=== PATIENT | male | born 1960 | race Caucasian/White ===

== ENCOUNTER 2021-06-08 08:28 | Observation (INO) | payer MEDICAID, OTHER ==
[~2021-06-08] VITALS: Ht 182.9 cm; Wt 83.9 kg
[2021-06-08 09:50] LABS: Basophils # (auto) 0.1 10 ^3/uL (0-0.2); Eosinophils # (auto) 0.3 10 ^3/uL (0-0.8); Eosinophils % (auto) 4.4 % (0.0-7.0); Hematocrit 41.1 % (41.0-53.0); Hemoglobin 13.8 g/dL (13.5-17.5); Lymphocytes # (auto) 1.4 10 ^3/uL (0.4-5.4); Lymphocytes % (auto) 20.2 % (10.0-50.0); Mean Corpuscular Hemoglobin 31.8 pg (28.0-32.0); Mean Corpuscular Hgb Conc. 33.6 g/dL (32.0-36.0); Mean Corpuscular Volume 94.8 fL (80.0-100.0); Monocytes # (auto) 0.7 10 ^3/uL (0-1.3); Monocytes % (auto) 10.9 % (0.0-12.0); Neutrophils # (auto) 4.3 10 ^3/uL (1.6-8.6); Neutrophils % (auto) 63.5 % (37.0-80.0); Nucleated Red Blood Cells % 0.3 %; Red Blood Cells 4.34 10^6/uL (4.5-5.90); Red Cell Distribution Width 17.2 % (11.8-14.3); White Blood Cell 6.7 10^3/uL (4.4-10.8)
[2021-06-08 09:59] LABS: Anion Gap 6 (5-15); Blood Urea Nitrogen 10 mg/dL (7-18); Calcium 7.8 mg/dL (8.5-10.1); Carbon Dioxide 24 mmol/L (21-32); Chloride 111 mmol/L (98-107); Potassium 3.8 mmol/L (3.5-5.1); Sodium 141 mmol/L (136-145)
[2021-06-08 10:07] LABS: Alanine Aminotransferase 57 U/L (16-61); Albumin 2.1 g/dL (3.4-5.0); Alkaline Phosphatase 163 U/L (45-117); Aspartate Aminotransferase 84 U/L (15-37); BUN/Creatinine Ratio 12.8; Bilirubin, Total 2.8 mg/dL (0.2-1.0); GFR African American 130 mL/min; GFR Non-African American 108 mL/min; Glucose 98 mg/dL (74-106); Magnesium 2.3 mg/dL (1.6-2.6); Total Protein 5.8 g/dL (6.4-8.2)
[2021-06-08 10:39] LABS: INR 1.37 (0.9-1.15); Partial Thromboplastin Time 31.9 sec (23.6-33.0)
[2021-06-08] MEDS ORDERED: SPIRONOLACTONE 25 MG TAB PO SCH (14:15)
[2021-06-08] MEDS ORDERED: MORPHINE SULFATE INJECTION 2 MG/ML SYRG IV PRN (14:15)
[2021-06-08] MEDS ORDERED: ONDANSETRON HCL 4 MG/2 ML VIAL IV PRN (14:15)
[2021-06-08] MEDS ORDERED: HYDROcodone-ACET 5/325MG TAB PO PRN (14:15)
[2021-06-08] MEDS ORDERED: DOCUSATE SOD 100 MG CAP PO PRN (14:15)
[2021-06-08] MEDS ORDERED: ACETAMINOPHEN 325 MG TAB PO PRN (14:15)
[2021-06-08] MEDS ORDERED: NITROGLYCERIN 0.4 MG SL TAB SL PRN (14:15)
[2021-06-08 15:28] LABS: Free T4 (Free Thyroxine) 1.15 ng/dL (0.89-1.76)
[2021-06-08 15:30] LABS: Free T3 2.35 pg/mL (2.3-4.2)
[2021-06-08] MEDS ORDERED: POTA10TA32 PO (16:10)
[2021-06-08] MEDS ORDERED: SPIR25TA PO (16:10)
[2021-06-08] MEDS ORDERED: FUR20T PO (16:10)
[2021-06-08 16:22] LABS: Hepatitis B Core IgM Negative
[2021-06-08 16:23] LABS: Hepatitis A Ab IgM Negative; Hepatitis B Surface Antigen Negative (Negative)
[2021-06-08 16:25] LABS: Hepatitis C Antibody Positive (Negative)
[2021-06-08 18:09] VITALS: BP 132/79
[2021-06-09] MEDS ORDERED: SPIRONOLACTONE 25 MG TAB PO SCH (10:00)
[2021-06-09] MEDS ORDERED: FUROSEMIDE 20 MG TAB PO SCH (10:00)
== END 2021-06-08 18:19 | disposition home or self-care (01) ==
LOC: EDBD 08:28 → ER 08:28 → OVERFLOW 14:41
PROVIDERS: ADMIT Internal Medicine; ATTEND Internal Medicine
DX: R18.8 Other ascites (principal); Z20.822 Contact with and (suspected) exposure to COVID-19; R07.89 Other chest pain; F10.10 Alcohol abuse, uncomplicated; D84.9 Immunodeficiency, unspecified; E88.09 Other disorders of plasma-protein metabolism, not elsewhere classified; K57.30 Diverticulosis of large intestine without perforation or abscess without bleeding; K80.20 Calculus of gallbladder without cholecystitis without obstruction; F17.210 Nicotine dependence, cigarettes, uncomplicated; R74.01 Elevation of levels of liver transaminase levels; Z79.899 Other long term (current) drug therapy
CPT/HCPCS: 36415; 71045; 74176; 76942; 80053; 80074; 80320; 83615; 83735; 83880; 84439; 84443; 84481; 84484; 85025; 85610; 85730; 87205; 87426; 89051; 93306; 99291; C1729; G0378; 93005

== ENCOUNTER 2021-08-08 11:56 | Emergency (ER) | payer MEDICAID ==
[~2021-08-08] VITALS: Ht 182.9 cm; Wt 108.9 kg
[~2021-08-08 11:56] MED LIST: FUR20T PO; POTA10TA32 PO; SPIR25TA PO
[2021-08-08 12:53] LABS: Basophils # (auto) 0 10 ^3/uL (0-0.2); Basophils % (auto) 0.5 % (0.0-2.0); Eosinophils # (auto) 0.4 10 ^3/uL (0-0.8); Eosinophils % (auto) 6.7 % (0.0-7.0); Hematocrit 32.8 % (41.0-53.0); Hemoglobin 11.1 g/dL (13.5-17.5); Lymphocytes % (auto) 17.9 % (10.0-50.0); Mean Corpuscular Hemoglobin 32.6 pg (28.0-32.0); Mean Corpuscular Hgb Conc. 33.8 g/dL (32.0-36.0); Mean Corpuscular Volume 96.3 fL (80.0-100.0); Monocytes # (auto) 0.7 10 ^3/uL (0-1.3); Monocytes % (auto) 12.3 % (0.0-12.0); Neutrophils # (auto) 3.5 10 ^3/uL (1.6-8.6); Neutrophils % (auto) 62.6 % (37.0-80.0); Nucleated Red Blood Cells % 0.2 %; Red Blood Cells 3.41 10^6/uL (4.5-5.90); Red Cell Distribution Width 17.4 % (11.8-14.3); White Blood Cell 5.7 10^3/uL (4.4-10.8)
[2021-08-08 13:08] LABS: INR 1.34 (0.9-1.15); Partial Thromboplastin Time 32.8 sec (23.6-33.0)
[2021-08-08 13:14] LABS: Albumin 1.9 g/dL (3.4-5.0); BUN/Creatinine Ratio 13.4; Calcium 7.3 mg/dL (8.5-10.1); Potassium 3.9 mmol/L (3.5-5.1)
[2021-08-08 13:17] LABS: Bilirubin, Total 1.9 mg/dL (0.2-1.0); Total Protein 5.3 g/dL (6.4-8.2)
[2021-08-08 14:20] VITALS: BP 137/80
== END 2021-08-08 16:03 | disposition left against medical advice (07) ==
LOC: ER 11:56
DX: K74.60 Unspecified cirrhosis of liver (principal); E83.51 Hypocalcemia; R18.8 Other ascites; F17.210 Nicotine dependence, cigarettes, uncomplicated; I10 Essential (primary) hypertension; F12.10 Cannabis abuse, uncomplicated
CPT/HCPCS: 36415; 49083; 76700; 76942; 80053; 83690; 85025; 85610; 85730; 99285; C1729

== ENCOUNTER 2021-08-20 08:43 | Emergency (ER) | payer MEDICAID ==
[~2021-08-20] VITALS: Ht 182.9 cm; Wt 102.5 kg
[2021-08-20 10:16] LABS: Basophils # (auto) 0.1 10 ^3/uL (0-0.2); Basophils % (auto) 1.1 % (0.0-2.0); Eosinophils # (auto) 0.4 10 ^3/uL (0-0.8); Eosinophils % (auto) 7.1 % (0.0-7.0); Hematocrit 34.2 % (41.0-53.0); Hemoglobin 11.6 g/dL (13.5-17.5); Lymphocytes # (auto) 1.3 10 ^3/uL (0.4-5.4); Lymphocytes % (auto) 22.3 % (10.0-50.0); Mean Corpuscular Hemoglobin 31.9 pg (28.0-32.0); Mean Corpuscular Hgb Conc. 33.8 g/dL (32.0-36.0); Mean Corpuscular Volume 94.3 fL (80.0-100.0); Monocytes # (auto) 0.8 10 ^3/uL (0-1.3); Monocytes % (auto) 14.1 % (0.0-12.0); Neutrophils # (auto) 3.3 10 ^3/uL (1.6-8.6); Neutrophils % (auto) 55.4 % (37.0-80.0); Nucleated Red Blood Cells % 0.7 %; Red Blood Cells 3.63 10^6/uL (4.5-5.90); Red Cell Distribution Width 16.4 % (11.8-14.3)
[2021-08-20 10:19] LABS: Anion Gap 5 (5-15); Blood Alcohol < 3.0 mg/dL (0-5); Blood Urea Nitrogen 9 mg/dL (7-18); Calcium 7.3 mg/dL (8.5-10.1); Carbon Dioxide 25 mmol/L (21-32); Chloride 108 mmol/L (98-107); Glucose 103 mg/dL (74-106); Potassium 3.7 mmol/L (3.5-5.1); Sodium 138 mmol/L (136-145)
[2021-08-20 10:23] LABS: Alanine Aminotransferase 48 U/L (16-61); Alkaline Phosphatase 116 U/L (45-117); Aspartate Aminotransferase 73 U/L (15-37); BUN/Creatinine Ratio 11.7; Bilirubin, Total 2.1 mg/dL (0.2-1.0); GFR African American 132 mL/min; GFR Non-African American 109 mL/min; Total Protein 5.8 g/dL (6.4-8.2)
[2021-08-20 11:15] VITALS: BP 188/85
[2021-08-20 12:27] LABS: INR 1.23 (0.9-1.15)
[2021-08-20] MEDS ORDERED: ALBUMIN 25% 100 ML IV ONE ×2 (14:56→14:57)
== END 2021-08-20 17:37 | disposition left against medical advice (07) ==
LOC: ER 08:43
DX: K70.31 Alcoholic cirrhosis of liver with ascites (principal); R14.0 Abdominal distension (gaseous); F17.210 Nicotine dependence, cigarettes, uncomplicated; F12.10 Cannabis abuse, uncomplicated; I10 Essential (primary) hypertension
CPT/HCPCS: 36415; 74176; 76942; 80053; 80320; 82140; 84443; 85025; 85610; 99284; J7030; P9047

== ENCOUNTER 2021-09-07 13:38 | Emergency (ER) | payer MEDICAID ==
[~2021-09-07] VITALS: Ht 185.4 cm; Wt 95.7 kg
[2021-09-07 13:41] VITALS: BP 145/73
== END 2021-09-07 14:04 | disposition left against medical advice (07) ==
LOC: ER 13:38
DX: K74.69 Other cirrhosis of liver (principal); R18.8 Other ascites; I10 Essential (primary) hypertension; F17.210 Nicotine dependence, cigarettes, uncomplicated; Z79.899 Other long term (current) drug therapy

== ENCOUNTER 2021-09-08 08:12 | Emergency (ER) | payer MEDICAID ==
[~2021-09-08] VITALS: Ht 182.9 cm; Wt 99.8 kg
[2021-09-08 08:15] VITALS: BP 124/82
[2021-09-08 10:04] LABS: Basophils # (auto) 0.1 10 ^3/uL (0-0.2); Basophils % (auto) 0.9 % (0.0-2.0); Eosinophils # (auto) 0.5 10 ^3/uL (0-0.8); Eosinophils % (auto) 9.6 % (0.0-7.0); Hematocrit 33.5 % (41.0-53.0); Hemoglobin 11.3 g/dL (13.5-17.5); Lymphocytes # (auto) 1.3 10 ^3/uL (0.4-5.4); Lymphocytes % (auto) 22.4 % (10.0-50.0); Mean Corpuscular Hemoglobin 31.7 pg (28.0-32.0); Mean Corpuscular Hgb Conc. 33.9 g/dL (32.0-36.0); Mean Corpuscular Volume 93.6 fL (80.0-100.0); Monocytes # (auto) 0.6 10 ^3/uL (0-1.3); Neutrophils # (auto) 3.3 10 ^3/uL (1.6-8.6); Neutrophils % (auto) 57.1 % (37.0-80.0); Nucleated Red Blood Cells % 0.2 %; Red Blood Cells 3.58 10^6/uL (4.5-5.90); Red Cell Distribution Width 16.2 % (11.8-14.3); White Blood Cell 5.7 10^3/uL (4.4-10.8)
[2021-09-08 10:09] LABS: Calcium 7.8 mg/dL (8.5-10.1); Potassium 3.8 mmol/L (3.5-5.1)
[2021-09-08 10:14] LABS: BUN/Creatinine Ratio 11.9; Bilirubin, Total 1.8 mg/dL (0.2-1.0); Total Protein 5.8 g/dL (6.4-8.2)
[2021-09-08 11:15] LABS: INR 1.31 (0.9-1.15)
== END 2021-09-08 18:22 | disposition left against medical advice (07) ==
LOC: ER 08:12
DX: K74.60 Unspecified cirrhosis of liver (principal); R18.8 Other ascites; E43 Unspecified severe protein-calorie malnutrition; I10 Essential (primary) hypertension; F17.210 Nicotine dependence, cigarettes, uncomplicated; Z68.29 Body mass index [BMI] 29.0-29.9, adult; Z79.899 Other long term (current) drug therapy
CPT/HCPCS: 36415; 76700; 80053; 85025; 85610; 85730; 93005

== ENCOUNTER → 2021-09-10 | Outpatient (CLI) | payer MEDICAID ==
[2021-09-10] MEDS: ALBUMIN 25% 100 ML IV SCH ×2 (11:24→11:35)
== END | disposition home or self-care (01) ==
LOC: XYW 10:09
PROVIDERS: ATTEND Internal Medicine Gastroenterology
DX: R18.8 Other ascites (principal)
CPT/HCPCS: 49083; 76700; 83986; 87205; 88104; 88305; 88342; 89051; C1729; 76942

== ENCOUNTER → 2021-09-17 | Outpatient (CLI) | payer MEDICAID | END | disposition home or self-care (01) | LOC: US 10:02 | PROVIDERS: ATTEND Internal Medicine Gastroenterology | DX: R18.8 Other ascites (principal) | CPT/HCPCS: 49083; 76705; C1729; 76942 ==

== ENCOUNTER → 2021-09-24 | Outpatient (CLI) | payer MEDICAID | END | disposition home or self-care (01) | LOC: US 09:32 | PROVIDERS: ATTEND Internal Medicine Gastroenterology | DX: R18.8 Other ascites (principal) | CPT/HCPCS: 49083; 76705; 76942 ==

== ENCOUNTER → 2021-10-01 | Outpatient (CLI) | payer MEDICAID | END | disposition home or self-care (01) | LOC: US 09:30 | PROVIDERS: ATTEND Internal Medicine Gastroenterology | DX: R18.8 Other ascites (principal) | CPT/HCPCS: 49083; 76705; 76942; C1729 ==

== ENCOUNTER → 2021-10-09 | Outpatient (CLI) | payer MEDICAID | END | disposition home or self-care (01) | LOC: XYW 14:41 | PROVIDERS: ATTEND Internal Medicine Gastroenterology | DX: R18.8 Other ascites (principal) | CPT/HCPCS: 49083; 76705; 76942; C1729 ==

== ENCOUNTER → 2021-10-15 | Outpatient (CLI) | payer MEDICAID | END | disposition home or self-care (01) | LOC: XYW 14:47 | PROVIDERS: ATTEND Internal Medicine Gastroenterology | DX: R18.8 Other ascites (principal) | CPT/HCPCS: 49083; 76705; C1729; 76942 ==

== ENCOUNTER → 2021-10-22 | Outpatient (CLI) | payer MEDICAID ==
[~2021-10-22] MED LIST changes: +LIDOCAINE 2%HCL (LOCAL ANESTH.) INJ 10ml MDV ONE
== END | disposition home or self-care (01) ==
LOC: US 15:00
PROVIDERS: ATTEND Internal Medicine Gastroenterology
DX: R18.8 Other ascites (principal)
CPT/HCPCS: 49083; 76705; C1729; J2001; 76942

== ENCOUNTER → 2021-11-03 | Outpatient (CLI) | payer MEDICAID ==
[~2021-11-03] MED LIST changes: -LIDOCAINE 2%HCL (LOCAL ANESTH.) INJ 10ml MDV ONE
== END | disposition home or self-care (01) ==
LOC: US 15:41
PROVIDERS: ATTEND Internal Medicine Gastroenterology
DX: R18.8 Other ascites (principal)
CPT/HCPCS: 49083; 76705; C1729; 76942

== ENCOUNTER → 2021-11-11 | Outpatient (CLI) | payer MEDICAID | END | disposition home or self-care (01) | LOC: XYW 14:54 | PROVIDERS: ATTEND Internal Medicine Gastroenterology | DX: R18.8 Other ascites (principal) | CPT/HCPCS: 49083; 76700; C1729; 76942 ==

== ENCOUNTER → 2021-11-19 | Outpatient (CLI) | payer MEDICAID | END | disposition home or self-care (01) | LOC: US 14:51 | PROVIDERS: ATTEND Internal Medicine Gastroenterology | DX: R18.8 Other ascites (principal) | CPT/HCPCS: 76700; 76942 ==

== ENCOUNTER → 2021-12-03 | Outpatient (CLI) | payer MEDICAID ==
[~2021-12-03] MED LIST changes: +LIDOCAINE 2%HCL (LOCAL ANESTH.) INJ 10ml MDV ONE
== END | disposition home or self-care (01) ==
LOC: XYW 12:33
PROVIDERS: ATTEND Internal Medicine Gastroenterology
DX: R18.8 Other ascites (principal)
CPT/HCPCS: 49083; 76700; C1729; 76942

== ENCOUNTER → 2021-12-11 | Outpatient (CLI) | payer MEDICAID ==
[~2021-12-11] MED LIST changes: -LIDOCAINE 2%HCL (LOCAL ANESTH.) INJ 10ml MDV ONE
== END | disposition home or self-care (01) ==
LOC: US 09:17
PROVIDERS: ATTEND Internal Medicine Gastroenterology
DX: R18.8 Other ascites (principal); K76.9 Liver disease, unspecified
CPT/HCPCS: 49083; 76700; C1729; J2001; 76942

== ENCOUNTER → 2021-12-21 | Outpatient (CLI) | payer MEDICAID | END | disposition home or self-care (01) | LOC: US 09:55 | PROVIDERS: ATTEND Internal Medicine Gastroenterology | DX: K76.9 Liver disease, unspecified (principal); Z86.19 Personal history of other infectious and parasitic diseases | CPT/HCPCS: 76700; 76942; C1729 ==

== ENCOUNTER → 2022-01-05 | Outpatient (CLI) | payer MEDICAID | END | disposition home or self-care (01) | LOC: XYW 11:59 | PROVIDERS: ATTEND Internal Medicine Gastroenterology | DX: K75.89 Other specified inflammatory liver diseases (principal); K74.60 Unspecified cirrhosis of liver; R18.8 Other ascites | CPT/HCPCS: 76700; 76942; 83986; 87205; 89051; C1729 ==

== ENCOUNTER → 2022-01-19 | Outpatient (CLI) | payer MEDICAID | END | disposition home or self-care (01) | LOC: XYW 11:53 | PROVIDERS: ATTEND Internal Medicine Gastroenterology | DX: R18.8 Other ascites (principal); Z20.822 Contact with and (suspected) exposure to COVID-19 | CPT/HCPCS: 49083; 76705; 83986; 87205; 88104; 88305; 88342; 89051; C1729; 76942 ==

== ENCOUNTER → 2022-01-26 | Outpatient (CLI) | payer MEDICAID | END | disposition home or self-care (01) | LOC: US 11:59 | PROVIDERS: ATTEND Internal Medicine Gastroenterology | DX: R18.8 Other ascites (principal); Z20.822 Contact with and (suspected) exposure to COVID-19 | CPT/HCPCS: 49083; 76700; 76942; 83986; 87205; 89051; C1729 ==

== ENCOUNTER → 2022-02-09 | Outpatient (CLI) | payer MEDICAID | END | disposition home or self-care (01) | LOC: XYW 11:57 | PROVIDERS: ATTEND Internal Medicine Gastroenterology | DX: R18.8 Other ascites (principal) | CPT/HCPCS: 87205; 89051; C1729; 76700; 76942 ==

== ENCOUNTER → 2022-02-23 | Outpatient (CLI) | payer MEDICAID ==
[~2022-02-23] MED LIST changes: +LIDOCAINE 2%HCL (LOCAL ANESTH.) INJ 10ml MDV ONE
[2022-02-23 13:14] LABS: Albumin 1.8 g/dL (3.4-5.0); Calcium 7.4 mg/dL (8.5-10.1); Potassium 4.3 mmol/L (3.5-5.1)
[2022-02-23 13:16] LABS: INR 1.16 (0.9-1.15); Partial Thromboplastin Time 28.4 sec (23.6-33.0)
[2022-02-23 13:17] LABS: Bilirubin, Total 1.4 mg/dL (0.2-1.0); Total Protein 5.7 g/dL (6.4-8.2)
== END | disposition home or self-care (01) ==
LOC: XYW 12:04
PROVIDERS: ATTEND Internal Medicine Gastroenterology
DX: R18.8 Other ascites (principal)
CPT/HCPCS: 36415; 49083; 76700; 80053; 85610; 85730; 87205; 89051; C1729; J2001; 76942

== ENCOUNTER → 2022-03-02 | Outpatient (CLI) | payer MEDICAID | END | disposition home or self-care (01) | LOC: US 11:53 | PROVIDERS: ATTEND Internal Medicine Gastroenterology | DX: R18.8 Other ascites (principal); Z20.822 Contact with and (suspected) exposure to COVID-19 | CPT/HCPCS: 49083; 76700; 83986; 87205; 89051; C1729; J2001; 76942 ==

== ENCOUNTER → 2022-03-09 | Outpatient (CLI) | payer MEDICAID | END | disposition home or self-care (01) | LOC: XYW 11:55 | PROVIDERS: ATTEND Internal Medicine Gastroenterology | DX: R18.8 Other ascites (principal) | CPT/HCPCS: 49083; 76705; 83986; 87205; 89051; C1729; J2001; 76942 ==

== ENCOUNTER → 2022-03-16 | Outpatient (CLI) | payer MEDICAID | END | disposition home or self-care (01) | LOC: XYW 11:54 | PROVIDERS: ATTEND Internal Medicine Gastroenterology | DX: R18.8 Other ascites (principal) | CPT/HCPCS: 49083; 76700; 76942; 83986; 87205; 89051; C1729; J2001 ==

== ENCOUNTER → 2022-03-23 | Outpatient (CLI) | payer MEDICAID ==
[~2022-03-23] MED LIST changes: -LIDOCAINE 2%HCL (LOCAL ANESTH.) INJ 10ml MDV ONE
== END | disposition home or self-care (01) ==
LOC: XYW 11:48
PROVIDERS: ATTEND Internal Medicine Gastroenterology
DX: R18.8 Other ascites (principal)
CPT/HCPCS: 76700; 76942; 87205; 89051; C1729

== ENCOUNTER → 2022-03-30 | Outpatient (CLI) | payer MEDICAID | END | disposition home or self-care (01) | LOC: US 12:00 | PROVIDERS: ATTEND Internal Medicine Gastroenterology | DX: R18.8 Other ascites (principal) | CPT/HCPCS: 49083; 76700; 76942; 83986; 87205; 88104; 88305; 88342; 89051; C1729 ==

== ENCOUNTER → 2022-04-06 | Outpatient (CLI) | payer MEDICAID | END | disposition home or self-care (01) | LOC: XYW 11:49 | PROVIDERS: ATTEND Internal Medicine Gastroenterology | DX: R18.8 Other ascites (principal) | CPT/HCPCS: 49083; 76700; 83986; 87205; 89051; C1729; 76942 ==

== ENCOUNTER → 2022-04-13 | Outpatient (CLI) | payer MEDICAID | END | disposition home or self-care (01) | LOC: XYW 12:24 | PROVIDERS: ATTEND Internal Medicine Gastroenterology | DX: R18.8 Other ascites (principal) | CPT/HCPCS: 49083; 76942; 83986; 87205; 89051; C1729 ==

== ENCOUNTER → 2022-04-20 | Outpatient (CLI) | payer MEDICAID | END | disposition home or self-care (01) | LOC: XYW 11:56 | PROVIDERS: ATTEND Internal Medicine Gastroenterology | DX: R18.8 Other ascites (principal) | CPT/HCPCS: 49083; 76700; 83986; 87205; 89051; C1729; 76942 ==

== ENCOUNTER → 2022-04-27 | Outpatient (CLI) | payer MEDICAID | END | disposition home or self-care (01) | LOC: XYW 11:46 | PROVIDERS: ATTEND Internal Medicine Gastroenterology | DX: R18.8 Other ascites (principal); Z20.822 Contact with and (suspected) exposure to COVID-19 | CPT/HCPCS: 49083; 76700; 83986; 87205; 89051; C1729; 76942 ==

== ENCOUNTER → 2022-05-04 | Outpatient (CLI) | payer MEDICAID ==
[~2022-05-04] MED LIST changes: +LIDOCAINE VISCOUS 2% 15ML UD ONE; +MIDAZOLAM HCL 5 MG/ML-1ML VIAL ONE; +diphenhdrAMINE HCL 50 MG/1 ML VL ONE; +fentaNYL CITRATE 100 MCG/2 ML VL ONE
== END | disposition home or self-care (01) ==
LOC: XYW 11:55
PROVIDERS: ATTEND Internal Medicine Gastroenterology
DX: R18.8 Other ascites (principal); F17.200 Nicotine dependence, unspecified, uncomplicated
CPT/HCPCS: 49083; 76705; 76942; 83986; 87077; 87186; 87205; 89051

== ENCOUNTER 2022-05-12 13:24 | Day surgery (SDC) | payer MEDICAID ==
[2022-05-10 12:51] LABS: Basophils # (auto) 0.1 10 ^3/uL (0-0.2); Basophils % (auto) 0.9 % (0.0-2.0); Eosinophils # (auto) 0.9 10 ^3/uL (0-0.8); Eosinophils % (auto) 13.4 % (0.0-7.0); Hematocrit 37.5 % (41.0-53.0); Hemoglobin 12.1 g/dL (13.5-17.5); Lymphocytes # (auto) 1.4 10 ^3/uL (0.4-5.4); Lymphocytes % (auto) 21.2 % (10.0-50.0); Mean Corpuscular Hemoglobin 27.6 pg (28.0-32.0); Mean Corpuscular Hgb Conc. 32.4 g/dL (32.0-36.0); Mean Corpuscular Volume 85.3 fL (80.0-100.0); Monocytes # (auto) 0.7 10 ^3/uL (0-1.3); Neutrophils # (auto) 3.6 10 ^3/uL (1.6-8.6); Neutrophils % (auto) 54.5 % (37.0-80.0); Nucleated Red Blood Cells % 0.2 %; Red Blood Cells 4.39 10^6/uL (4.5-5.90); White Blood Cell 6.6 10^3/uL (4.4-10.8)
[2022-05-10 12:53] LABS: Red Cell Distribution Width 23.1 % (11.8-14.3)
[2022-05-10 13:05] LABS: INR 1.15 (0.9-1.15); Partial Thromboplastin Time 28.4 sec (24.6-33.4)
[2022-05-10 13:14] LABS: Albumin 2.2 g/dL (3.4-5.0); Calcium 7.8 mg/dL (8.5-10.1); Potassium 4.3 mmol/L (3.5-5.1)
[2022-05-10 13:45] LABS: BUN/Creatinine Ratio 13.4; Bilirubin, Total 1.2 mg/dL (0.2-1.0); Total Protein 5.5 g/dL (6.4-8.2)
[~2022-05-12] VITALS: Ht 182.9 cm; Wt 81.6 kg
[~2022-05-12 13:24] MED LIST changes: -LIDOCAINE VISCOUS 2% 15ML UD ONE; -MIDAZOLAM HCL 5 MG/ML-1ML VIAL ONE; -diphenhdrAMINE HCL 50 MG/1 ML VL ONE; -fentaNYL CITRATE 100 MCG/2 ML VL ONE
[2022-05-12 16:05] VITALS: BP 114/75
[2022-05-18] MEDS ORDERED: FER325T PO (15:39)
[2022-05-18] MEDS ORDERED: LEV50T PO (15:39)
== END 2022-05-12 16:21 | disposition home or self-care (01) ==
LOC: GI 13:24
PROVIDERS: ATTEND Internal Medicine Gastroenterology
DX: R53.82 Chronic fatigue, unspecified (principal); K74.60 Unspecified cirrhosis of liver; D61.818 Other pancytopenia; K31.89 Other diseases of stomach and duodenum; K44.9 Diaphragmatic hernia without obstruction or gangrene; K29.50 Unspecified chronic gastritis without bleeding; K29.90 Gastroduodenitis, unspecified, without bleeding; Z98.890 Other specified postprocedural states; Z79.899 Other long term (current) drug therapy; Z20.822 Contact with and (suspected) exposure to COVID-19; Z87.891 Personal history of nicotine dependence
CPT/HCPCS: 36415; 43239; 80053; 85025; 85610; 85730; 88305; 88342; J1200; J2250; J3010; J7030; U0003; 99152

== ENCOUNTER → 2022-05-13 | Outpatient (CLI) | payer MEDICAID ==
[~2022-05-13] MED LIST changes: +FER325T PO; +LEV50T PO
== END | disposition home or self-care (01) ==
LOC: US 12:05
PROVIDERS: ATTEND Internal Medicine Gastroenterology
DX: R18.8 Other ascites (principal)
CPT/HCPCS: 49083; 76700; 83986; 87205; 89051; C1729; 76942

== ENCOUNTER → 2022-05-19 | Day surgery (SDC) | payer MEDICAID ==
[2022-05-18 13:36] LABS: Hematocrit 36.7 % (41.0-53.0); Hemoglobin 11.8 g/dL (13.5-17.5); Mean Corpuscular Hemoglobin 27.5 pg (28.0-32.0); Mean Corpuscular Hgb Conc. 32.2 g/dL (32.0-36.0); Mean Corpuscular Volume 85.4 fL (80.0-100.0); White Blood Cell 6.4 10^3/uL (4.4-10.8)
[2022-05-18 13:46] LABS: Red Cell Distribution Width 22.8 % (11.8-14.3)
[2022-05-18 13:47] LABS: Band Neutrophils % (manual) 0; Basophils % (manual) 0 (0.0-2.0); Blast Cells 0; Metamyelocytes % 0; Myelocytes % 0; Promyelocytes % 0; Reactive Lymphocytes 0
[2022-05-18 13:57] LABS: INR 1.16 (0.9-1.15); Partial Thromboplastin Time 29.4 sec (24.6-33.4)
[2022-05-18 14:00] LABS: Albumin 1.8 g/dL (3.4-5.0); Calcium 7.3 mg/dL (8.5-10.1); Potassium 3.8 mmol/L (3.5-5.1)
[2022-05-18 14:03] LABS: BUN/Creatinine Ratio 9.5; Total Protein 5.2 g/dL (6.4-8.2)
[2022-05-18 14:06] LABS: Eosinophils % (manual) 21 (0-7); Lymphocytes % (manual) 18 (10.0-50.0); Monocytes % (manual) 7 (0-12)
[~2022-05-19] VITALS: Ht 182.9 cm; Wt 81.6 kg
[~2022-05-19] MED LIST changes: +HYDROmorphone HCL 2 MG/ML VL/or syr IV ONE; +HYDROmorphone HCL 2 MG/ML VL/or syr ONE; +MIDAZOLAM HCL 5 MG/ML-1ML VIAL IV ONE; +ONDANSETRON HCL 4 MG/2 ML VIAL IV ONE; +ONDANSETRON HCL 4 MG/2 ML VIAL ONE; +diphenhdrAMINE HCL 50 MG/1 ML VL IV ONE; +fentaNYL CITRATE 100 MCG/2 ML VL IV ONE
[2022-05-19 17:00] VITALS: BP 103/82
== END | disposition home or self-care (01) ==
LOC: GI 13:36
PROVIDERS: ATTEND Internal Medicine Gastroenterology
DX: R10.30 Lower abdominal pain, unspecified (principal); K57.30 Diverticulosis of large intestine without perforation or abscess without bleeding; K64.0 First degree hemorrhoids; D12.5 Benign neoplasm of sigmoid colon; D64.9 Anemia, unspecified; I10 Essential (primary) hypertension; E03.9 Hypothyroidism, unspecified; Z79.899 Other long term (current) drug therapy; Z20.822 Contact with and (suspected) exposure to COVID-19
CPT/HCPCS: 36415; 45380; 74018; 80053; 85007; 85027; 85610; 85730; 88305; J1170; J1200; J2250; J2405; J3010; J7030; U0003; 99152

== ENCOUNTER → 2022-05-27 | Outpatient (CLI) | payer MEDICAID ==
[~2022-05-27] MED LIST changes: -HYDROmorphone HCL 2 MG/ML VL/or syr IV ONE; -HYDROmorphone HCL 2 MG/ML VL/or syr ONE; -MIDAZOLAM HCL 5 MG/ML-1ML VIAL IV ONE; -ONDANSETRON HCL 4 MG/2 ML VIAL IV ONE; -ONDANSETRON HCL 4 MG/2 ML VIAL ONE; -diphenhdrAMINE HCL 50 MG/1 ML VL IV ONE; -fentaNYL CITRATE 100 MCG/2 ML VL IV ONE
== END | disposition home or self-care (01) ==
LOC: US 13:15
PROVIDERS: ATTEND Internal Medicine Gastroenterology
DX: R18.8 Other ascites (principal)
CPT/HCPCS: 49083; 76700; 76942; 83986; 87205; 89051; C1729

== ENCOUNTER → 2022-06-03 | Outpatient (CLI) | payer MEDICAID | END | disposition home or self-care (01) | LOC: US 12:53 | PROVIDERS: ATTEND Internal Medicine Gastroenterology | DX: R18.8 Other ascites (principal) | CPT/HCPCS: 49083; 76700; 83986; 87205; 89051; C1729; 76942 ==

== ENCOUNTER → 2022-06-10 | Outpatient (CLI) | payer MEDICAID ==
[2022-06-10 13:51] LABS: Basophils # (auto) 0 10 ^3/uL (0-0.2); Basophils % (auto) 0.4 % (0.0-2.0); Eosinophils # (auto) 0.6 10 ^3/uL (0-0.8); Eosinophils % (auto) 9.8 % (0.0-7.0); Hematocrit 36.2 % (41.0-53.0); Lymphocytes # (auto) 0.8 10 ^3/uL (0.4-5.4); Lymphocytes % (auto) 11.9 % (10.0-50.0); Mean Corpuscular Hemoglobin 29.3 pg (28.0-32.0); Mean Corpuscular Hgb Conc. 33.1 g/dL (32.0-36.0); Mean Corpuscular Volume 88.6 fL (80.0-100.0); Monocytes # (auto) 0.6 10 ^3/uL (0-1.3); Monocytes % (auto) 8.9 % (0.0-12.0); Neutrophils # (auto) 4.4 10 ^3/uL (1.6-8.6); Red Blood Cells 4.09 10^6/uL (4.5-5.90); White Blood Cell 6.3 10^3/uL (4.4-10.8)
[2022-06-10 14:07] LABS: INR 1.19 (0.9-1.15); Partial Thromboplastin Time 27.5 sec (24.6-33.4)
== END | disposition home or self-care (01) ==
LOC: US 13:53
PROVIDERS: ATTEND Internal Medicine Gastroenterology
DX: R18.8 Other ascites (principal)
CPT/HCPCS: 36415; 49083; 76700; 85025; 85610; 85730; 87205; 89051; C1729; 76942

== ENCOUNTER → 2022-06-16 | Outpatient (CLI) | payer MEDICAID ==
[2022-06-16 12:40] LABS: Basophils # (auto) 0 10 ^3/uL (0-0.2); Basophils % (auto) 0.7 % (0.0-2.0); Eosinophils # (auto) 0.8 10 ^3/uL (0-0.8); Eosinophils % (auto) 14.1 % (0.0-7.0); Hematocrit 37.8 % (41.0-53.0); Hemoglobin 12.9 g/dL (13.5-17.5); Lymphocytes # (auto) 1.1 10 ^3/uL (0.4-5.4); Lymphocytes % (auto) 19.1 % (10.0-50.0); Mean Corpuscular Hemoglobin 30.1 pg (28.0-32.0); Mean Corpuscular Volume 88.4 fL (80.0-100.0); Monocytes # (auto) 0.6 10 ^3/uL (0-1.3); Monocytes % (auto) 10.7 % (0.0-12.0); Neutrophils # (auto) 3.3 10 ^3/uL (1.6-8.6); Neutrophils % (auto) 55.4 % (37.0-80.0); Nucleated Red Blood Cells % 0.1 %; Red Blood Cells 4.28 10^6/uL (4.5-5.90); Red Cell Distribution Width 19.2 % (11.8-14.3)
[2022-06-16 13:07] LABS: Albumin 1.8 g/dL (3.4-5.0); Calcium 7.2 mg/dL (8.5-10.1); INR 1.17 (0.9-1.15); Partial Thromboplastin Time 28.7 sec (24.6-33.4); Potassium 3.9 mmol/L (3.5-5.1)
[2022-06-16 13:08] LABS: BUN/Creatinine Ratio 10.1
[2022-06-16 13:11] LABS: Bilirubin, Total 1.4 mg/dL (0.2-1.0); Total Protein 5.4 g/dL (6.4-8.2)
== END | disposition home or self-care (01) ==
LOC: LAB 12:14
PROVIDERS: ATTEND Internal Medicine Gastroenterology
DX: R18.8 Other ascites (principal)
CPT/HCPCS: 36415; 80053; 85025; 85610; 85730

== ENCOUNTER → 2022-06-17 | Outpatient (CLI) | payer MEDICAID | END | disposition home or self-care (01) | LOC: US 12:23 | PROVIDERS: ATTEND Internal Medicine Gastroenterology | DX: R18.8 Other ascites (principal) | CPT/HCPCS: 49083; 76705; 87205; 89051; C1729; 76942 ==

== ENCOUNTER → 2022-06-29 | Outpatient (CLI) | payer MEDICAID ==
[2022-06-29 12:39] LABS: Basophils # (auto) 0.1 10 ^3/uL (0-0.2); Basophils % (auto) 1.2 % (0.0-2.0); Eosinophils % (auto) 12.8 % (0.0-7.0); Hematocrit 35.8 % (41.0-53.0); Hemoglobin 12.2 g/dL (13.5-17.5); Lymphocytes # (auto) 1.4 10 ^3/uL (0.4-5.4); Mean Corpuscular Hemoglobin 29.9 pg (28.0-32.0); Mean Corpuscular Hgb Conc. 34.1 g/dL (32.0-36.0); Mean Corpuscular Volume 87.7 fL (80.0-100.0); Monocytes % (auto) 11.9 % (0.0-12.0); Neutrophils # (auto) 4.6 10 ^3/uL (1.6-8.6); Neutrophils % (auto) 57.1 % (37.0-80.0); Red Blood Cells 4.08 10^6/uL (4.5-5.90); Red Cell Distribution Width 17.1 % (11.8-14.3); White Blood Cell 8.1 10^3/uL (4.4-10.8)
[2022-06-29 12:54] LABS: INR 1.12 (0.9-1.15); Partial Thromboplastin Time 32.3 sec (24.6-33.4)
[2022-06-29 13:26] LABS: BUN/Creatinine Ratio 15.2; Calcium 7.6 mg/dL (8.5-10.1); Potassium 4.1 mmol/L (3.5-5.1)
== END | disposition home or self-care (01) ==
LOC: LAB 12:14
PROVIDERS: ATTEND Internal Medicine Gastroenterology
DX: R18.8 Other ascites (principal)
CPT/HCPCS: 36415; 80048; 85025; 85610; 85730

== ENCOUNTER → 2022-06-30 | Outpatient (CLI) | payer MEDICAID | END | disposition home or self-care (01) | LOC: XYW 12:25 | PROVIDERS: ATTEND Internal Medicine Gastroenterology | DX: R18.8 Other ascites (principal) | CPT/HCPCS: 49083; 76705; 83986; 87205; 89051; C1729; 76942 ==

== ENCOUNTER → 2022-07-08 | Outpatient (CLI) | payer MEDICAID | END | disposition home or self-care (01) | LOC: XYW 10:03 | PROVIDERS: ATTEND Internal Medicine Gastroenterology | DX: R18.8 Other ascites (principal) | CPT/HCPCS: 49083; 76700; 83986; 87205; 89051; C1729; 76942 ==

== ENCOUNTER → 2022-07-08 | Outpatient (CLI) | payer MEDICAID ==
[2022-07-08 10:26] LABS: Basophils # (auto) 0 10 ^3/uL (0-0.2); Basophils % (auto) 0.8 % (0.0-2.0); Eosinophils # (auto) 0.7 10 ^3/uL (0-0.8); Eosinophils % (auto) 11.7 % (0.0-7.0); Hematocrit 38.3 % (41.0-53.0); Hemoglobin 12.8 g/dL (13.5-17.5); Lymphocytes # (auto) 1.2 10 ^3/uL (0.4-5.4); Mean Corpuscular Hemoglobin 30.4 pg (28.0-32.0); Mean Corpuscular Hgb Conc. 33.5 g/dL (32.0-36.0); Mean Corpuscular Volume 90.8 fL (80.0-100.0); Monocytes # (auto) 0.6 10 ^3/uL (0-1.3); Monocytes % (auto) 11.1 % (0.0-12.0); Neutrophils # (auto) 3.2 10 ^3/uL (1.6-8.6); Neutrophils % (auto) 55.4 % (37.0-80.0); Nucleated Red Blood Cells % 0.1 %; Red Blood Cells 4.21 10^6/uL (4.5-5.90); Red Cell Distribution Width 18.3 % (11.8-14.3); White Blood Cell 5.7 10^3/uL (4.4-10.8)
[2022-07-08 10:44] LABS: INR 1.19 (0.9-1.15); Partial Thromboplastin Time 28.6 sec (24.6-33.4)
== END | disposition home or self-care (01) ==
LOC: LAB 09:42
PROVIDERS: ATTEND Internal Medicine Gastroenterology
DX: R18.8 Other ascites (principal)
CPT/HCPCS: 85610; 85730

== ENCOUNTER → 2022-07-13 | Outpatient (CLI) | payer MEDICAID ==
[2022-07-13 12:12] LABS: Basophils # (auto) 0 10 ^3/uL (0-0.2); Basophils % (auto) 0.6 % (0.0-2.0); Eosinophils # (auto) 0.5 10 ^3/uL (0-0.8); Eosinophils % (auto) 11.3 % (0.0-7.0); Hematocrit 35.8 % (41.0-53.0); Hemoglobin 11.9 g/dL (13.5-17.5); Lymphocytes # (auto) 0.9 10 ^3/uL (0.4-5.4); Lymphocytes % (auto) 19.7 % (10.0-50.0); Mean Corpuscular Hemoglobin 30.7 pg (28.0-32.0); Mean Corpuscular Hgb Conc. 33.4 g/dL (32.0-36.0); Monocytes # (auto) 0.5 10 ^3/uL (0-1.3); Monocytes % (auto) 12.1 % (0.0-12.0); Neutrophils # (auto) 2.6 10 ^3/uL (1.6-8.6); Neutrophils % (auto) 56.3 % (37.0-80.0); Red Blood Cells 3.89 10^6/uL (4.5-5.90); Red Cell Distribution Width 17.4 % (11.8-14.3); White Blood Cell 4.5 10^3/uL (4.4-10.8)
[2022-07-13 14:23] LABS: INR 1.22 (0.9-1.15)
== END | disposition home or self-care (01) ==
LOC: LAB 11:44
PROVIDERS: ATTEND Internal Medicine Gastroenterology
DX: R18.8 Other ascites (principal)
CPT/HCPCS: 36415; 85025; 85049; 85610; 85730

== ENCOUNTER → 2022-07-14 | Outpatient (CLI) | payer MEDICAID ==
[~2022-07-14] MED LIST changes: +LIDOCAINE 1%HCL (LOCAL ANESTH) 10 ML MDV ONE
== END | disposition home or self-care (01) ==
LOC: XYW 12:37
PROVIDERS: ATTEND Internal Medicine Gastroenterology
DX: R18.8 Other ascites (principal)
CPT/HCPCS: 49083; 76700; 83986; 87205; 89051; C1729; J2001; 76942

== ENCOUNTER → 2022-07-21 | Outpatient (CLI) | payer MEDICAID ==
[~2022-07-21] MED LIST changes: -LIDOCAINE 1%HCL (LOCAL ANESTH) 10 ML MDV ONE
[2022-07-21 15:15] LABS: Basophils # (auto) 0 10 ^3/uL (0-0.2); Basophils % (auto) 0.6 % (0.0-2.0); Eosinophils # (auto) 0.9 10 ^3/uL (0-0.8); Eosinophils % (auto) 14.4 % (0.0-7.0); Hematocrit 37.2 % (41.0-53.0); Hemoglobin 12.5 g/dL (13.5-17.5); Lymphocytes # (auto) 1.4 10 ^3/uL (0.4-5.4); Lymphocytes % (auto) 22.3 % (10.0-50.0); Mean Corpuscular Hemoglobin 30.7 pg (28.0-32.0); Mean Corpuscular Hgb Conc. 33.6 g/dL (32.0-36.0); Mean Corpuscular Volume 91.2 fL (80.0-100.0); Monocytes # (auto) 0.9 10 ^3/uL (0-1.3); Monocytes % (auto) 13.4 % (0.0-12.0); Neutrophils # (auto) 3.2 10 ^3/uL (1.6-8.6); Neutrophils % (auto) 49.3 % (37.0-80.0); Nucleated Red Blood Cells % 0.1 %; Red Blood Cells 4.08 10^6/uL (4.5-5.90); White Blood Cell 6.4 10^3/uL (4.4-10.8)
[2022-07-21 15:29] LABS: INR 1.18 (0.9-1.15); Partial Thromboplastin Time 27.9 sec (24.6-33.4)
== END | disposition home or self-care (01) ==
LOC: LAB 14:58
PROVIDERS: ATTEND Internal Medicine Gastroenterology
DX: R18.8 Other ascites (principal)
CPT/HCPCS: 36415; 85025; 85049; 85610; 85730

== ENCOUNTER → 2022-07-22 | Outpatient (CLI) | payer MEDICAID | END | disposition home or self-care (01) | LOC: XYW 12:45 | PROVIDERS: ATTEND Internal Medicine Gastroenterology | DX: R18.8 Other ascites (principal) | CPT/HCPCS: 49083; 76700; 83986; 87205; 89051; C1729; 76942 ==

== ENCOUNTER → 2022-07-27 | Outpatient (CLI) | payer MEDICAID ==
[2022-07-27 15:30] LABS: Basophils # (auto) 0 10 ^3/uL (0-0.2); Basophils % (auto) 0.9 % (0.0-2.0); Eosinophils # (auto) 0.3 10 ^3/uL (0-0.8); Hemoglobin 12.5 g/dL (13.5-17.5); Lymphocytes # (auto) 1.2 10 ^3/uL (0.4-5.4); Monocytes # (auto) 0.4 10 ^3/uL (0-1.3); Neutrophils # (auto) 0.9 10 ^3/uL (1.6-8.6); White Blood Cell 2.8 10^3/uL (4.4-10.8)
[2022-07-27 15:32] LABS: Eosinophils % (auto) 10.6 % (0.0-7.0); Hematocrit 36.6 % (41.0-53.0); Lymphocytes % (auto) 42.7 % (10.0-50.0); Mean Corpuscular Hemoglobin 31.4 pg (28.0-32.0); Mean Corpuscular Hgb Conc. 34.3 g/dL (32.0-36.0); Mean Corpuscular Volume 91.6 fL (80.0-100.0); Monocytes % (auto) 13.9 % (0.0-12.0); Neutrophils % (auto) 31.9 % (37.0-80.0); Red Blood Cells 3.99 10^6/uL (4.5-5.90); Red Cell Distribution Width 16.7 % (11.8-14.3)
[2022-07-28 12:09] LABS: INR 1.08 (0.9-1.15); Partial Thromboplastin Time 30.4 sec (24.6-33.4)
== END | disposition home or self-care (01) ==
LOC: LAB 15:08
PROVIDERS: ATTEND Internal Medicine Gastroenterology
DX: R18.8 Other ascites (principal)
CPT/HCPCS: 36415; 85025; 85049; 85610; 85730

== ENCOUNTER → 2022-07-28 | Outpatient (CLI) | payer MEDICAID | END | disposition home or self-care (01) | LOC: US 11:39 | PROVIDERS: ATTEND Internal Medicine Gastroenterology | DX: R18.8 Other ascites (principal) | CPT/HCPCS: 49083; 76700; 76942; 83986; 87205; 89051; C1729 ==

== ENCOUNTER → 2022-08-05 | Outpatient (CLI) | payer MEDICAID ==
[2022-08-05 15:26] LABS: Basophils # (auto) 0.1 10 ^3/uL (0-0.2); Basophils % (auto) 1.2 % (0.0-2.0); Eosinophils # (auto) 0.4 10 ^3/uL (0-0.8); Eosinophils % (auto) 6.8 % (0.0-7.0); Hematocrit 38.3 % (41.0-53.0); Hemoglobin 12.9 g/dL (13.5-17.5); Lymphocytes # (auto) 1.1 10 ^3/uL (0.4-5.4); Mean Corpuscular Hemoglobin 30.6 pg (28.0-32.0); Mean Corpuscular Hgb Conc. 33.6 g/dL (32.0-36.0); Mean Corpuscular Volume 91.1 fL (80.0-100.0); Monocytes # (auto) 0.7 10 ^3/uL (0-1.3); Monocytes % (auto) 11.9 % (0.0-12.0); Neutrophils # (auto) 3.4 10 ^3/uL (1.6-8.6); Neutrophils % (auto) 61.1 % (37.0-80.0); Red Cell Distribution Width 16.2 % (11.8-14.3); White Blood Cell 5.5 10^3/uL (4.4-10.8)
[2022-08-05 15:40] LABS: INR 1.19 (0.9-1.15); Partial Thromboplastin Time 29.6 sec (24.6-33.4)
== END | disposition home or self-care (01) ==
LOC: LAB 15:11
PROVIDERS: ATTEND Internal Medicine Gastroenterology
DX: R18.8 Other ascites (principal)
CPT/HCPCS: 36415; 85025; 85610; 85730

== ENCOUNTER → 2022-08-06 | Outpatient (CLI) | payer MEDICAID | END | disposition home or self-care (01) | LOC: XYW 12:38 | PROVIDERS: ATTEND Internal Medicine Gastroenterology | DX: R18.8 Other ascites (principal) | CPT/HCPCS: 49083; 76700; 83986; 87205; 89051; C1729; 76942 ==

== ENCOUNTER → 2022-08-11 | Outpatient (CLI) | payer MEDICAID ==
[2022-08-11 15:29] LABS: Basophils # (auto) 0 10 ^3/uL (0-0.2); Basophils % (auto) 0.7 % (0.0-2.0); Eosinophils # (auto) 0.3 10 ^3/uL (0-0.8); Eosinophils % (auto) 6.2 % (0.0-7.0); Lymphocytes # (auto) 1.3 10 ^3/uL (0.4-5.4); Lymphocytes % (auto) 24.2 % (10.0-50.0); Monocytes # (auto) 0.6 10 ^3/uL (0-1.3); Monocytes % (auto) 10.8 % (0.0-12.0); Neutrophils % (auto) 58.1 % (37.0-80.0); White Blood Cell 5.2 10^3/uL (4.4-10.8)
[2022-08-11 15:30] LABS: Hemoglobin 12.4 g/dL (13.5-17.5); Mean Corpuscular Hemoglobin 30.9 pg (28.0-32.0); Mean Corpuscular Hgb Conc. 33.4 g/dL (32.0-36.0); Mean Corpuscular Volume 92.3 fL (80.0-100.0); Red Cell Distribution Width 16.1 % (11.8-14.3)
[2022-08-11 15:31] LABS: INR 1.17 (0.9-1.15); Partial Thromboplastin Time 29.8 sec (24.6-33.4)
== END | disposition home or self-care (01) ==
LOC: LAB 15:05
PROVIDERS: ATTEND Internal Medicine Gastroenterology
DX: R18.8 Other ascites (principal)
CPT/HCPCS: 36415; 85025; 85049; 85610; 85730

== ENCOUNTER → 2022-08-17 | Outpatient (CLI) | payer MEDICAID ==
[~2022-08-17] MED LIST changes: +FURO1TAB32 PO; +MELA3TAB27 PO; +TEMA15CA2 PO
== END | disposition home or self-care (01) ==
LOC: XYW 14:47
PROVIDERS: ATTEND Internal Medicine Gastroenterology
DX: R18.8 Other ascites (principal)
CPT/HCPCS: 49083; 76700; 76942; 83986; 87205; 89051; C1729

== ENCOUNTER 2022-08-24 16:39 | Inpatient (IN) | payer MEDICAID ==
[~2022-08-24] VITALS: Ht 182.9 cm; Wt 81.7 kg
[~2022-08-24 16:39] MED LIST changes: -FURO1TAB32 PO
[2022-08-24] MEDS ORDERED: FUROSEMIDE 40 MG/4 ML VIAL IV ONE (17:15)
[2022-08-24 19:00] LABS: Basophils # (auto) 0.1 10 ^3/uL (0-0.2); Basophils % (auto) 0.9 % (0.0-2.0); Eosinophils # (auto) 0.5 10 ^3/uL (0-0.8); Eosinophils % (auto) 7.6 % (0.0-7.0); Hematocrit 40.2 % (41.0-53.0); Hemoglobin 13.4 g/dL (13.5-17.5); Lymphocytes % (auto) 16.8 % (10.0-50.0); Mean Corpuscular Hemoglobin 31.4 pg (28.0-32.0); Mean Corpuscular Hgb Conc. 33.4 g/dL (32.0-36.0); Monocytes # (auto) 0.6 10 ^3/uL (0-1.3); Monocytes % (auto) 10.7 % (0.0-12.0); Neutrophils # (auto) 3.8 10 ^3/uL (1.6-8.6); Nucleated Red Blood Cells % 0.1 %; Red Blood Cells 4.28 10^6/uL (4.5-5.90); Red Cell Distribution Width 17.2 % (11.8-14.3)
[2022-08-24 19:16] LABS: BUN/Creatinine Ratio 12.2; Calcium 7.6 mg/dL (8.5-10.1)
[2022-08-24 19:18] LABS: Bilirubin, Total 1.4 mg/dL (0.2-1.0); Total Protein 5.6 g/dL (6.4-8.2)
[2022-08-24] MEDS ORDERED: DOCUSATE SOD 100 MG CAP PO PRN (22:30)
[2022-08-24] MEDS ORDERED: ACETAMINOPHEN 325 MG TAB PO PRN (22:30)
[2022-08-24] MEDS ORDERED: MORPHINE SULFATE INJ 2 MG/ml SYRG IV PRN (22:30)
[2022-08-24] MEDS ORDERED: HYDROcodone-ACET 5/325MG TAB PO PRN (22:30)
[2022-08-24] MEDS ORDERED: HYDROmorphone HCL 2 MG/ML VL/or syr IV PRN (22:30)
[2022-08-24] MEDS ORDERED: ONDANSETRON HCL 4 MG/2 ML VIAL IV PRN (22:30)
[2022-08-24] MEDS ORDERED: MAALOX PLUS or MAALOX 30 ML PO PRN (22:30)
[2022-08-25] MEDS: TEMAZEPAM 15 MG CAP PO PRN (01:02)
[2022-08-25] MEDS: LORazepam 0.5 MG TAB PO PRN ×2 (01:02→17:29)
[2022-08-25 06:04] LABS: Basophils # (auto) 0.1 10 ^3/uL (0-0.2); Basophils % (auto) 0.9 % (0.0-2.0); Eosinophils # (auto) 0.6 10 ^3/uL (0-0.8); Eosinophils % (auto) 10.4 % (0.0-7.0); Hematocrit 35.4 % (41.0-53.0); Hemoglobin 11.9 g/dL (13.5-17.5); Lymphocytes # (auto) 1.1 10 ^3/uL (0.4-5.4); Mean Corpuscular Hemoglobin 31.5 pg (28.0-32.0); Mean Corpuscular Hgb Conc. 33.7 g/dL (32.0-36.0); Mean Corpuscular Volume 93.5 fL (80.0-100.0); Monocytes # (auto) 0.8 10 ^3/uL (0-1.3); Monocytes % (auto) 14.3 % (0.0-12.0); Neutrophils # (auto) 3.2 10 ^3/uL (1.6-8.6); Neutrophils % (auto) 55.4 % (37.0-80.0); Nucleated Red Blood Cells % 0.1 %; Red Blood Cells 3.79 10^6/uL (4.5-5.90); White Blood Cell 5.7 10^3/uL (4.4-10.8)
[2022-08-25 06:22] LABS: Calcium 7.3 mg/dL (8.5-10.1); Potassium 4.1 mmol/L (3.5-5.1)
[2022-08-25 06:24] LABS: BUN/Creatinine Ratio 12.2
[2022-08-25] MEDS: LEVOTHYROXINE SODIUM 50 MCG TAB PO SCH (06:28)
[2022-08-25] MEDS ORDERED: SPIRONOLACTONE 25 MG TAB PO SCH (10:00)
[2022-08-25] MEDS ORDERED: FUROSEMIDE 40 MG/4 ML VIAL IV SCH (10:00)
[2022-08-25] MEDS: FERROUS SULFATE 325mg EC TAB PO SCH (11:43)
[2022-08-25] MEDS: ALBUMIN 25% 50 ML IV SCH (17:30)
[2022-08-25 23:31] VITALS: BP 124/71
[2022-08-26] MEDS: ALBUMIN 25% 50 ML IV SCH ×2 (00:29→08:16)
[2022-08-26] MEDS: TEMAZEPAM 15 MG CAP PO PRN (00:38)
[2022-08-26 01:16] VITALS: BP 124/71
[2022-08-26] MEDS ORDERED: FURO1TAB32 PO (03:26)
[2022-08-26] MEDS: LEVOTHYROXINE SODIUM 50 MCG TAB PO SCH (05:59)
[2022-08-26 07:25] LABS: Basophils # (auto) 0 10 ^3/uL (0-0.2); Eosinophils # (auto) 0.5 10 ^3/uL (0-0.8); Eosinophils % (auto) 12.3 % (0.0-7.0); Monocytes # (auto) 0.5 10 ^3/uL (0-1.3); Neutrophils # (auto) 2.3 10 ^3/uL (1.6-8.6); Nucleated Red Blood Cells % 0.1 %; White Blood Cell 4.2 10^3/uL (4.4-10.8)
[2022-08-26 07:27] LABS: Basophils % (auto) 1.1 % (0.0-2.0); Hematocrit 30.5 % (41.0-53.0); Hemoglobin 10.8 g/dL (13.5-17.5); Lymphocytes # (auto) 0.8 10 ^3/uL (0.4-5.4); Lymphocytes % (auto) 20.1 % (10.0-50.0); Mean Corpuscular Hemoglobin 32.8 pg (28.0-32.0); Mean Corpuscular Hgb Conc. 35.4 g/dL (32.0-36.0); Mean Corpuscular Volume 92.6 fL (80.0-100.0); Neutrophils % (auto) 54.5 % (37.0-80.0); Red Cell Distribution Width 16.7 % (11.8-14.3)
[2022-08-26 07:41] LABS: Calcium 7.3 mg/dL (8.5-10.1); Potassium 3.9 mmol/L (3.5-5.1)
[2022-08-26 07:44] LABS: BUN/Creatinine Ratio 19.4
[2022-08-26 09:00] VITALS: BP 104/69
[2022-08-26] MEDS: FERROUS SULFATE 325mg EC TAB PO SCH (09:49)
[2022-08-26] MEDS ORDERED: SPIRONOLACTONE 25 MG TAB PO SCH (10:00)
[2022-08-26 13:00] VITALS: BP 109/65
[2022-08-26] MEDS ORDERED: TEMA15CA2 PO (15:54)
[2022-08-26] MEDS ORDERED: MELA3TAB27 PO (15:56)
[2022-08-26 16:51] VITALS: BP 89/54
[2022-08-26 17:13] VITALS: BP 115/76
== END 2022-08-26 19:00 | disposition home health service (06) | DRG 143 ==
LOC: ER 16:39 → TELE 22:34 → TELE-WESTW 08-25 23:02
PROVIDERS: ADMIT Hospitalist; ATTEND Hospitalist
PROC: 0W993ZZ Drainage of Right Pleural Cavity, Percutaneous Approach (ICD-10-PCS; principal; 2022-08-25)
PROC: 0W993ZZ Drainage of Right Pleural Cavity, Percutaneous Approach (ICD-10-PCS; 2022-08-26)
DX: J90 Pleural effusion, not elsewhere classified (principal); E43 Unspecified severe protein-calorie malnutrition; R18.8 Other ascites; K74.60 Unspecified cirrhosis of liver; F17.210 Nicotine dependence, cigarettes, uncomplicated; I10 Essential (primary) hypertension; J94.8 Other specified pleural conditions; Z68.24 Body mass index [BMI] 24.0-24.9, adult
CPT/HCPCS: 36415; 36600; 71045; 71046; 71250; 76604; 76705; 76942; 80048; 80053; 82805; 83880; 83986; 84484; 85025; 87070; 87205; 87426; 89051; 93005; 96365; 96366; 96375; 96376; 99291; G0378; J2405

== ENCOUNTER → 2022-08-24 | Outpatient (CLI) | payer MEDICAID ==
[~2022-08-24] MED LIST changes: -MELA3TAB27 PO; -TEMA15CA2 PO
[2022-08-24 15:08] LABS: INR 1.19 (0.9-1.15); Partial Thromboplastin Time 29.2 sec (24.6-33.4)
[2022-08-24 15:56] LABS: Basophils # (auto) 0.1 10 ^3/uL (0-0.2); Basophils % (auto) 1.3 % (0.0-2.0); Eosinophils # (auto) 0.5 10 ^3/uL (0-0.8); Eosinophils % (auto) 9.3 % (0.0-7.0); Hematocrit 40.5 % (41.0-53.0); Hemoglobin 13.7 g/dL (13.5-17.5); Lymphocytes # (auto) 1.1 10 ^3/uL (0.4-5.4); Lymphocytes % (auto) 21.4 % (10.0-50.0); Mean Corpuscular Hemoglobin 31.7 pg (28.0-32.0); Mean Corpuscular Volume 93.3 fL (80.0-100.0); Monocytes # (auto) 0.5 10 ^3/uL (0-1.3); Monocytes % (auto) 10.5 % (0.0-12.0); Neutrophils % (auto) 57.5 % (37.0-80.0); Nucleated Red Blood Cells % 0.1 %; Red Blood Cells 4.34 10^6/uL (4.5-5.90); Red Cell Distribution Width 17.2 % (11.8-14.3); White Blood Cell 5.2 10^3/uL (4.4-10.8)
== END | disposition home or self-care (01) ==
LOC: LAB 14:39
PROVIDERS: ATTEND Internal Medicine Gastroenterology
DX: R18.8 Other ascites (principal)
CPT/HCPCS: 36415; 85025; 85610; 85730

== ENCOUNTER 2022-09-08 14:13 | Inpatient (IN) | payer MEDICAID ==
[~2022-09-08] VITALS: Ht 188 cm; Wt 73.0 kg
[~2022-09-08 14:13] MED LIST changes: +FURO1TAB32 PO; +MELA3TAB27 PO
[2022-09-08 15:06] LABS: Basophils # (auto) 0 10 ^3/uL (0-0.2); Basophils % (auto) 0.1 % (0.0-2.0); Eosinophils # (auto) 0.1 10 ^3/uL (0-0.8); Eosinophils % (auto) 0.9 % (0.0-7.0); Hematocrit 42.4 % (41.0-53.0); Lymphocytes # (auto) 0.5 10 ^3/uL (0.4-5.4); Lymphocytes % (auto) 7.1 % (10.0-50.0); Mean Corpuscular Hemoglobin 30.6 pg (28.0-32.0); Mean Corpuscular Volume 92.8 fL (80.0-100.0); Monocytes # (auto) 0.5 10 ^3/uL (0-1.3); Neutrophils # (auto) 5.9 10 ^3/uL (1.6-8.6); Neutrophils % (auto) 84.9 % (37.0-80.0); Nucleated Red Blood Cells % 0.1 %; Red Blood Cells 4.57 10^6/uL (4.5-5.90); Red Cell Distribution Width 16.2 % (11.8-14.3); White Blood Cell 6.9 10^3/uL (4.4-10.8)
[2022-09-08] MEDS ORDERED: FUROSEMIDE 40 MG/4 ML VIAL IV ONE (15:15)
[2022-09-08] MEDS ORDERED: HYDROcodone-ACET 5/325MG TAB PO ONE (15:15)
[2022-09-08 15:23] LABS: Albumin 2.4 g/dL (3.4-5.0); BUN/Creatinine Ratio 12.6; Calcium 7.9 mg/dL (8.5-10.1); Potassium 3.9 mmol/L (3.5-5.1)
[2022-09-08 15:25] LABS: INR 1.24 (0.9-1.15); Partial Thromboplastin Time 28.8 sec (24.6-33.4)
[2022-09-08] MEDS ORDERED: ACETAMINOPHEN 325 MG TAB PO PRN (16:30)
[2022-09-08] MEDS ORDERED: PANTOPRAZOLE 40 MG/10 ML VIAL INJ IV ONE (16:30)
[2022-09-08] MEDS ORDERED: NITROGLYCERIN 0.4 MG SL TAB SL PRN (16:30)
[2022-09-08] MEDS ORDERED: MORPHINE SULFATE INJ 2 MG/ml SYRG IV PRN ×2 (16:30→17:00)
[2022-09-08 16:31] LABS: Urine Bacteria NONE SEEN /hpf (None Seen); Urine Blood Negative /uL (Negative); Urine Specific Gravity 1.009 (1.001-1.035); Urine WBC <1 /hpf (0 - 3)
[2022-09-09] MEDS: HYDROcodone-ACET 5/325MG TAB PO PRN (06:57)
[2022-09-09] MEDS: LEVOTHYROXINE SODIUM 50 MCG TAB PO SCH (06:57)
[2022-09-09 10:36] LABS: Basophils # (auto) 0 10 ^3/uL (0-0.2); Basophils % (auto) 0.2 % (0.0-2.0); Eosinophils # (auto) 0.3 10 ^3/uL (0-0.8); Eosinophils % (auto) 5.7 % (0.0-7.0); Hemoglobin 12.8 g/dL (13.5-17.5); Lymphocytes # (auto) 0.8 10 ^3/uL (0.4-5.4); Lymphocytes % (auto) 14.8 % (10.0-50.0); Mean Corpuscular Hemoglobin 30.5 pg (28.0-32.0); Mean Corpuscular Hgb Conc. 32.9 g/dL (32.0-36.0); Mean Corpuscular Volume 92.6 fL (80.0-100.0); Monocytes # (auto) 0.9 10 ^3/uL (0-1.3); Monocytes % (auto) 15.9 % (0.0-12.0); Neutrophils # (auto) 3.5 10 ^3/uL (1.6-8.6); Neutrophils % (auto) 63.4 % (37.0-80.0); Nucleated Red Blood Cells % 0.1 %; Red Blood Cells 4.22 10^6/uL (4.5-5.90); Red Cell Distribution Width 16.2 % (11.8-14.3); White Blood Cell 5.6 10^3/uL (4.4-10.8)
[2022-09-09 10:58] LABS: Albumin 2.4 g/dL (3.4-5.0); BUN/Creatinine Ratio 13.5; Calcium 8.1 mg/dL (8.5-10.1); Potassium 3.9 mmol/L (3.5-5.1)
[2022-09-09 11:01] LABS: Bilirubin, Total 1.8 mg/dL (0.2-1.0); Total Protein 5.9 g/dL (6.4-8.2)
[2022-09-09] MEDS: PANTOPRAZOLE 40 MG/10 ML VIAL INJ IV SCH (13:18)
[2022-09-09] MEDS: FERROUS SULFATE 325mg EC TAB PO SCH (13:18)
[2022-09-09] MEDS: SPIRONOLACTONE 25 MG TAB PO SCH (13:18)
[2022-09-09 18:05] VITALS: BP 113/75
[2022-09-09 21:01] LABS: Cholesterol 148 mg/dL (< 200)
[2022-09-09 21:04] LABS: HDL Cholesterol 34 mg/dL (40-59); LDL Cholesterol 110 mg/dL (< 100); Triglycerides 69 mg/dL (< 150)
[2022-09-10] MEDS: HYDROcodone-ACET 5/325MG TAB PO PRN ×2 (00:23→08:29)
[2022-09-10 05:00] VITALS: BP 99/57
[2022-09-10] MEDS: LEVOTHYROXINE SODIUM 50 MCG TAB PO SCH (06:01)
[2022-09-10 08:20] LABS: Basophils # (auto) 0 10 ^3/uL (0-0.2); Eosinophils # (auto) 0.5 10 ^3/uL (0-0.8); Lymphocytes # (auto) 1.1 10 ^3/uL (0.4-5.4); Mean Corpuscular Hemoglobin 31.5 pg (28.0-32.0); Mean Corpuscular Hgb Conc. 34.7 g/dL (32.0-36.0); Monocytes # (auto) 0.7 10 ^3/uL (0-1.3); Neutrophils # (auto) 1.9 10 ^3/uL (1.6-8.6); White Blood Cell 4.2 10^3/uL (4.4-10.8)
[2022-09-10 08:22] LABS: Basophils % (auto) 0.1 % (0.0-2.0); Eosinophils % (auto) 12.6 % (0.0-7.0); Hematocrit 31.4 % (41.0-53.0); Hemoglobin 10.9 g/dL (13.5-17.5); Mean Corpuscular Volume 90.8 fL (80.0-100.0); Neutrophils % (auto) 45.3 % (37.0-80.0); Nucleated Red Blood Cells % 0.8 %; Red Blood Cells 3.46 10^6/uL (4.5-5.90); Red Cell Distribution Width 15.9 % (11.8-14.3)
[2022-09-10 08:34] LABS: BUN/Creatinine Ratio 17.9; Calcium 7.3 mg/dL (8.5-10.1); Potassium 3.8 mmol/L (3.5-5.1)
[2022-09-10 09:00] VITALS: BP 99/58
[2022-09-10] MEDS: SPIRONOLACTONE 25 MG TAB PO SCH (09:07)
[2022-09-10] MEDS: PANTOPRAZOLE 40 MG/10 ML VIAL INJ IV SCH (09:07)
[2022-09-10] MEDS: FERROUS SULFATE 325mg EC TAB PO SCH (09:07)
[2022-09-10 12:17] VITALS: BP 103/53
[2022-09-10 12:19] VITALS: BP 103/53
[2022-09-10 13:00] VITALS: BP 92/40
== END 2022-09-10 15:19 | disposition home or self-care (01) ==
LOC: ER 14:13 → TELE 16:30 → TELE-E-ADS 09-09 17:47 → TELE-EAST 09-09 23:34
PROVIDERS: ADMIT Nurse Practitioner Family; ATTEND Internal Medicine Pulmonary Disease
PROC: 0W993ZZ Drainage of Right Pleural Cavity, Percutaneous Approach (ICD-10-PCS; principal; 2022-09-09)
DX: K74.60 Unspecified cirrhosis of liver (principal); D69.6 Thrombocytopenia, unspecified; I24.9 Acute ischemic heart disease, unspecified; E83.51 Hypocalcemia; J91.8 Pleural effusion in other conditions classified elsewhere; R18.8 Other ascites; Z20.822 Contact with and (suspected) exposure to COVID-19; E03.9 Hypothyroidism, unspecified; F10.10 Alcohol abuse, uncomplicated; I10 Essential (primary) hypertension; Z72.0 Tobacco use
CPT/HCPCS: 36415; 71045; 71046; 74176; 76604; 76705; 76942; 80048; 80053; 80061; 81001; 83880; 83986; 84443; 84484; 85025; 85610; 85730; 87070; 87205; 87426; 89051; 93005; 93306; 96374; C9113; G0378

== ENCOUNTER → 2022-09-22 | Outpatient (CLI) | payer MEDICAID ==
[2022-09-22 16:01] LABS: Basophils # (auto) 0 10 ^3/uL (0-0.2); Basophils % (auto) 0.6 % (0.0-2.0); Eosinophils # (auto) 0.6 10 ^3/uL (0-0.8); Eosinophils % (auto) 8.6 % (0.0-7.0); Hematocrit 38.6 % (41.0-53.0); Lymphocytes # (auto) 0.9 10 ^3/uL (0.4-5.4); Lymphocytes % (auto) 14.7 % (10.0-50.0); Mean Corpuscular Hgb Conc. 33.6 g/dL (32.0-36.0); Mean Corpuscular Volume 92.2 fL (80.0-100.0); Monocytes # (auto) 0.7 10 ^3/uL (0-1.3); Monocytes % (auto) 10.9 % (0.0-12.0); Neutrophils # (auto) 4.2 10 ^3/uL (1.6-8.6); Neutrophils % (auto) 65.2 % (37.0-80.0); Nucleated Red Blood Cells % 0.1 %; Red Blood Cells 4.19 10^6/uL (4.5-5.90); Red Cell Distribution Width 16.1 % (11.8-14.3); White Blood Cell 6.4 10^3/uL (4.4-10.8)
[2022-09-22 16:20] LABS: INR 1.18 (0.9-1.15)
== END | disposition home or self-care (01) ==
LOC: LAB 15:44
PROVIDERS: ATTEND Internal Medicine Gastroenterology
DX: R18.8 Other ascites (principal)
CPT/HCPCS: 36415; 85025; 85049; 85610; 85730

== ENCOUNTER → 2022-09-23 | Outpatient (CLI) | payer MEDICAID | END | disposition home or self-care (01) | LOC: US 11:15 | PROVIDERS: ATTEND Internal Medicine Gastroenterology | DX: R18.8 Other ascites (principal) | CPT/HCPCS: 76705 ==

== ENCOUNTER → 2022-10-12 | Outpatient (CLI) | payer MEDICAID ==
[2022-10-12 15:18] LABS: Basophils # (auto) 0.1 10 ^3/uL (0-0.2); Basophils % (auto) 0.9 % (0.0-2.0); Eosinophils # (auto) 0.6 10 ^3/uL (0-0.8); Eosinophils % (auto) 8.5 % (0.0-7.0); Hematocrit 38.2 % (41.0-53.0); Hemoglobin 13.3 g/dL (13.5-17.5); Lymphocytes # (auto) 1.2 10 ^3/uL (0.4-5.4); Lymphocytes % (auto) 16.5 % (10.0-50.0); Mean Corpuscular Hemoglobin 31.9 pg (28.0-32.0); Mean Corpuscular Hgb Conc. 34.7 g/dL (32.0-36.0); Mean Corpuscular Volume 91.8 fL (80.0-100.0); Monocytes # (auto) 0.8 10 ^3/uL (0-1.3); Monocytes % (auto) 11.2 % (0.0-12.0); Neutrophils # (auto) 4.7 10 ^3/uL (1.6-8.6); Neutrophils % (auto) 62.9 % (37.0-80.0); Nucleated Red Blood Cells % 0.1 %; Red Blood Cells 4.16 10^6/uL (4.5-5.90); Red Cell Distribution Width 16.4 % (11.8-14.3); White Blood Cell 7.5 10^3/uL (4.4-10.8)
[2022-10-12 15:34] LABS: INR 1.2 (0.9-1.15); Partial Thromboplastin Time 29.3 sec (24.6-33.4)
[2022-10-12 15:36] LABS: BUN/Creatinine Ratio 19.3; Calcium 8.1 mg/dL (8.5-10.1); Potassium 4.5 mmol/L (3.5-5.1)
== END | disposition home or self-care (01) ==
LOC: LAB 15:04
PROVIDERS: ATTEND Internal Medicine Gastroenterology
DX: R18.8 Other ascites (principal)
CPT/HCPCS: 36415; 80048; 85025; 85610; 85730

== ENCOUNTER → 2022-10-26 | Outpatient (CLI) | payer MEDICAID ==
[2022-10-26 14:28] LABS: Basophils # (auto) 0 10 ^3/uL (0-0.2); Basophils % (auto) 0.5 % (0.0-2.0); Eosinophils # (auto) 0.9 10 ^3/uL (0-0.8); Eosinophils % (auto) 11.6 % (0.0-7.0); Hematocrit 38.9 % (41.0-53.0); Hemoglobin 13.2 g/dL (13.5-17.5); Lymphocytes # (auto) 1.2 10 ^3/uL (0.4-5.4); Lymphocytes % (auto) 15.4 % (10.0-50.0); Mean Corpuscular Hemoglobin 31.4 pg (28.0-32.0); Mean Corpuscular Hgb Conc. 34.1 g/dL (32.0-36.0); Mean Corpuscular Volume 92.2 fL (80.0-100.0); Monocytes # (auto) 0.9 10 ^3/uL (0-1.3); Monocytes % (auto) 11.9 % (0.0-12.0); Neutrophils # (auto) 4.7 10 ^3/uL (1.6-8.6); Neutrophils % (auto) 60.6 % (37.0-80.0); Nucleated Red Blood Cells % 0.1 %; Red Blood Cells 4.21 10^6/uL (4.5-5.90); White Blood Cell 7.7 10^3/uL (4.4-10.8)
[2022-10-26 14:36] LABS: INR 1.2 (0.9-1.15); Partial Thromboplastin Time 28.9 sec (24.6-33.4)
== END | disposition home or self-care (01) ==
LOC: LAB 13:49
PROVIDERS: ATTEND Internal Medicine Gastroenterology
DX: R18.8 Other ascites (principal)
CPT/HCPCS: 36415; 85025; 85049; 85610; 85730

== ENCOUNTER → 2022-11-18 | Outpatient (CLI) | payer MEDICAID | END | disposition home or self-care (01) | LOC: US 11:30 | PROVIDERS: ATTEND Internal Medicine Gastroenterology | DX: R16.1 Splenomegaly, not elsewhere classified (principal); R18.8 Other ascites; J90 Pleural effusion, not elsewhere classified | CPT/HCPCS: 76700 ==

== ENCOUNTER 2022-12-09 13:07 | Emergency (ER) | payer MEDICAID ==
[~2022-12-09] VITALS: Ht 182.9 cm; Wt 78.0 kg
[2022-12-09 13:16] VITALS: BP 121/74
[2022-12-09 14:08] LABS: Basophils # (auto) 0.1 10 ^3/uL (0-0.2); Basophils % (auto) 1.1 % (0.0-2.0); Eosinophils # (auto) 0.6 10 ^3/uL (0-0.8); Eosinophils % (auto) 12.3 % (0.0-7.0); Hematocrit 39.2 % (41.0-53.0); Lymphocytes # (auto) 1.1 10 ^3/uL (0.4-5.4); Lymphocytes % (auto) 21.4 % (10.0-50.0); Mean Corpuscular Hemoglobin 31.6 pg (28.0-32.0); Mean Corpuscular Hgb Conc. 33.3 g/dL (32.0-36.0); Monocytes # (auto) 0.5 10 ^3/uL (0-1.3); Monocytes % (auto) 10.1 % (0.0-12.0); Neutrophils # (auto) 2.8 10 ^3/uL (1.6-8.6); Neutrophils % (auto) 55.1 % (37.0-80.0); Nucleated Red Blood Cells % 0.1 %; Red Blood Cells 4.13 10^6/uL (4.5-5.90); Red Cell Distribution Width 16.3 % (11.8-14.3); White Blood Cell 5.1 10^3/uL (4.4-10.8)
[2022-12-09 14:26] LABS: Albumin 2.5 g/dL (3.4-5.0); Calcium 7.9 mg/dL (8.5-10.1); Potassium 4.2 mmol/L (3.5-5.1)
[2022-12-09 14:30] LABS: BUN/Creatinine Ratio 10.5 (10.0-20.0)
== END 2022-12-09 17:10 | disposition left against medical advice (07) ==
LOC: ER 13:07
DX: K70.31 Alcoholic cirrhosis of liver with ascites (principal); J90 Pleural effusion, not elsewhere classified; R14.0 Abdominal distension (gaseous); K76.82 Hepatic encephalopathy; I10 Essential (primary) hypertension; F12.10 Cannabis abuse, uncomplicated; F14.10 Cocaine abuse, uncomplicated; Z87.891 Personal history of nicotine dependence
CPT/HCPCS: 36415; 71046; 74176; 80053; 82140; 83690; 85025

== ENCOUNTER 2022-12-10 08:36 | Emergency (ER) | payer MEDICAID ==
[~2022-12-10] VITALS: Ht 182.9 cm; Wt 77.0 kg
[2022-12-10 09:17] LABS: Basophils # (auto) 0.1 10 ^3/uL (0-0.2); Basophils % (auto) 1.1 % (0.0-2.0); Eosinophils # (auto) 0.6 10 ^3/uL (0-0.8); Eosinophils % (auto) 12.2 % (0.0-7.0); Hematocrit 38.3 % (41.0-53.0); Lymphocytes % (auto) 19.5 % (10.0-50.0); Mean Corpuscular Hemoglobin 32.4 pg (28.0-32.0); Mean Corpuscular Hgb Conc. 33.9 g/dL (32.0-36.0); Mean Corpuscular Volume 95.6 fL (80.0-100.0); Monocytes # (auto) 0.5 10 ^3/uL (0-1.3); Monocytes % (auto) 10.1 % (0.0-12.0); Neutrophils # (auto) 2.8 10 ^3/uL (1.6-8.6); Neutrophils % (auto) 57.1 % (37.0-80.0); Nucleated Red Blood Cells % 0.1 %; Red Blood Cells 4.01 10^6/uL (4.5-5.90); White Blood Cell 4.9 10^3/uL (4.4-10.8)
[2022-12-10 09:30] LABS: INR 1.22 (0.9-1.15); Partial Thromboplastin Time 30.6 sec (24.6-33.4)
[2022-12-10 09:32] LABS: Albumin 2.5 g/dL (3.4-5.0)
[2022-12-10 09:35] LABS: BUN/Creatinine Ratio 15.5 (10.0-20.0); Bilirubin, Total 1.2 mg/dL (0.2-1.0); Total Protein 5.7 g/dL (6.4-8.2)
[2022-12-10 16:00] VITALS: BP 100/62
== END 2022-12-10 17:18 | disposition home or self-care (01) ==
LOC: ER 08:36
DX: J90 Pleural effusion, not elsewhere classified (principal); I10 Essential (primary) hypertension; Z87.891 Personal history of nicotine dependence; Z79.899 Other long term (current) drug therapy
CPT/HCPCS: 36415; 71045; 76604; 76942; 80053; 82140; 83986; 84484; 85025; 85610; 85730; 87070; 87205; 89051; 93005; 99285; C1729; J7030

== ENCOUNTER → 2023-01-03 | Outpatient (CLI) | payer MEDICAID ==
[2023-01-03 10:47] LABS: Eosinophils # (auto) 0.6 10 ^3/uL (0-0.8); Monocytes # (auto) 0.7 10 ^3/uL (0-1.3); White Blood Cell 5.4 10^3/uL (4.4-10.8)
[2023-01-03 10:49] LABS: Basophils # (auto) 0 10 ^3/uL (0-0.2); Basophils % (auto) 0.6 % (0.0-2.0); Eosinophils % (auto) 11.2 % (0.0-7.0); Hematocrit 38.2 % (41.0-53.0); Hemoglobin 13.1 g/dL (13.5-17.5); Lymphocytes % (auto) 18.2 % (10.0-50.0); Mean Corpuscular Hemoglobin 32.1 pg (28.0-32.0); Mean Corpuscular Hgb Conc. 34.2 g/dL (32.0-36.0); Mean Corpuscular Volume 93.9 fL (80.0-100.0); Neutrophils # (auto) 3.1 10 ^3/uL (1.6-8.6); Nucleated Red Blood Cells % 0.1 %; Red Blood Cells 4.07 10^6/uL (4.5-5.90); Red Cell Distribution Width 15.3 % (11.8-14.3)
[2023-01-03 11:45] LABS: INR 1.15 (0.9-1.15); Partial Thromboplastin Time 28.9 sec (24.6-33.4)
[2023-01-03 11:57] LABS: BUN/Creatinine Ratio 12.8 (10.0-20.0); Potassium 4.2 mmol/L (3.5-5.1)
== END | disposition home or self-care (01) ==
LOC: LAB 10:32
PROVIDERS: ATTEND Internal Medicine Gastroenterology
DX: R18.8 Other ascites (principal)
CPT/HCPCS: 36415; 80048; 85025; 85610; 85730

== ENCOUNTER → 2023-01-10 | Outpatient (CLI) | payer MEDICAID ==
[2023-01-10 15:41] LABS: Basophils # (auto) 0.1 10 ^3/uL (0-0.2); Basophils % (auto) 1.1 % (0.0-2.0); Eosinophils # (auto) 0.5 10 ^3/uL (0-0.8); Hematocrit 36.6 % (41.0-53.0); Hemoglobin 12.5 g/dL (13.5-17.5); Lymphocytes # (auto) 1.2 10 ^3/uL (0.4-5.4); Lymphocytes % (auto) 20.8 % (10.0-50.0); Mean Corpuscular Hemoglobin 32.4 pg (28.0-32.0); Mean Corpuscular Hgb Conc. 34.2 g/dL (32.0-36.0); Mean Corpuscular Volume 94.7 fL (80.0-100.0); Monocytes # (auto) 0.7 10 ^3/uL (0-1.3); Monocytes % (auto) 11.8 % (0.0-12.0); Neutrophils # (auto) 3.2 10 ^3/uL (1.6-8.6); Neutrophils % (auto) 57.3 % (37.0-80.0); Red Blood Cells 3.86 10^6/uL (4.5-5.90); Red Cell Distribution Width 15.2 % (11.8-14.3); White Blood Cell 5.6 10^3/uL (4.4-10.8)
[2023-01-10 15:48] LABS: INR 1.21 (0.9-1.15); Partial Thromboplastin Time 29.3 sec (24.6-33.4)
[2023-01-10 16:12] LABS: BUN/Creatinine Ratio 14.3 (10.0-20.0); Calcium 7.9 mg/dL (8.5-10.1); Potassium 4.2 mmol/L (3.5-5.1)
== END | disposition home or self-care (01) ==
LOC: LAB 15:15
PROVIDERS: ATTEND Internal Medicine Gastroenterology
DX: R18.8 Other ascites (principal)
CPT/HCPCS: 36415; 80048; 85025; 85610; 85730

== ENCOUNTER → 2023-01-12 | Outpatient (CLI) | payer MEDICAID | END | disposition home or self-care (01) | LOC: US 09:46 | PROVIDERS: ATTEND Internal Medicine Gastroenterology | DX: J90 Pleural effusion, not elsewhere classified (principal); R18.8 Other ascites | CPT/HCPCS: 76705 ==

== ENCOUNTER → 2023-01-13 | Outpatient (CLI) | payer MEDICAID ==
[~2023-01-13] MED LIST changes: +POTA-228 PO; -POTA10TA32 PO
== END | disposition home or self-care (01) ==
LOC: XYW 09:01
PROVIDERS: ATTEND Internal Medicine Pulmonary Disease
DX: J90 Pleural effusion, not elsewhere classified (principal)
CPT/HCPCS: 32555; 71045; 76942; 83986; 87070; 87205; 89051; C1729

== ENCOUNTER → 2023-01-31 | Outpatient (CLI) | payer MEDICAID ==
[2023-01-31 12:30] LABS: Eosinophils # (auto) 0.6 10 ^3/uL (0-0.8); Eosinophils % (auto) 9.1 % (0.0-7.0); Hemoglobin 12.5 g/dL (13.5-17.5); Lymphocytes # (auto) 1.2 10 ^3/uL (0.4-5.4); Mean Corpuscular Hemoglobin 31.9 pg (28.0-32.0); Mean Corpuscular Hgb Conc. 33.7 g/dL (32.0-36.0); Neutrophils # (auto) 3.6 10 ^3/uL (1.6-8.6); Nucleated Red Blood Cells % 0.1 %
[2023-01-31 12:32] LABS: Basophils # (auto) 0 10 ^3/uL (0-0.2); Basophils % (auto) 0.6 % (0.0-2.0); Hematocrit 37.1 % (41.0-53.0); Lymphocytes % (auto) 18.7 % (10.0-50.0); Mean Corpuscular Volume 94.6 fL (80.0-100.0); Monocytes # (auto) 0.8 10 ^3/uL (0-1.3); Monocytes % (auto) 13.1 % (0.0-12.0); Neutrophils % (auto) 58.5 % (37.0-80.0); Red Blood Cells 3.92 10^6/uL (4.5-5.90); Red Cell Distribution Width 14.6 % (11.8-14.3); White Blood Cell 6.2 10^3/uL (4.4-10.8)
[2023-01-31 12:49] LABS: INR 1.15 (0.9-1.15); Partial Thromboplastin Time 30.4 sec (24.6-33.4)
[2023-01-31 13:09] LABS: BUN/Creatinine Ratio 12.5 (10.0-20.0); Calcium 7.6 mg/dL (8.5-10.1)
== END | disposition home or self-care (01) ==
LOC: LAB 12:13
PROVIDERS: ATTEND Internal Medicine Gastroenterology
DX: R18.8 Other ascites (principal)
CPT/HCPCS: 36415; 80048; 85025; 85610; 85730

== ENCOUNTER → 2023-02-01 | Outpatient (CLI) | payer MEDICAID | END | disposition home or self-care (01) | LOC: US 10:23 | PROVIDERS: ATTEND Internal Medicine Gastroenterology | DX: J90 Pleural effusion, not elsewhere classified (principal) | CPT/HCPCS: 32555; 71045; 76604; 83986; 87070; 87205; 89051; C1729; 76942 ==

== ENCOUNTER → 2023-02-09 | Outpatient (CLI) | payer MEDICAID ==
[~2023-02-09] MED LIST changes: +ALBUTEROL SULF 2.5 MG/0.5ML(0.5%) NEB SOLN ONE
== END | disposition home or self-care (01) ==
LOC: RT 14:11
PROVIDERS: ATTEND Internal Medicine Pulmonary Disease
DX: J44.9 Chronic obstructive pulmonary disease, unspecified (principal); J91.8 Pleural effusion in other conditions classified elsewhere; R06.09 Other forms of dyspnea
CPT/HCPCS: 94060; 94727; 94729

== ENCOUNTER → 2023-03-07 | Outpatient (CLI) | payer MEDICAID ==
[~2023-03-07] MED LIST changes: -ALBUTEROL SULF 2.5 MG/0.5ML(0.5%) NEB SOLN ONE
[2023-03-07 16:29] LABS: Basophils # (auto) 0.1 10 ^3/uL (0-0.2); Basophils % (auto) 1.3 % (0.0-2.0); Eosinophils # (auto) 0.7 10 ^3/uL (0-0.8); Eosinophils % (auto) 9.1 % (0.0-7.0); Hematocrit 38.7 % (41.0-53.0); Lymphocytes # (auto) 1.5 10 ^3/uL (0.4-5.4); Lymphocytes % (auto) 21.2 % (10.0-50.0); Mean Corpuscular Hemoglobin 31.2 pg (28.0-32.0); Mean Corpuscular Hgb Conc. 33.5 g/dL (32.0-36.0); Mean Corpuscular Volume 93.4 fL (80.0-100.0); Monocytes # (auto) 0.8 10 ^3/uL (0-1.3); Neutrophils # (auto) 4.1 10 ^3/uL (1.6-8.6); Neutrophils % (auto) 57.4 % (37.0-80.0); Nucleated Red Blood Cells % 0.1 %; Red Blood Cells 4.14 10^6/uL (4.5-5.90); Red Cell Distribution Width 15.4 % (11.8-14.3); White Blood Cell 7.2 10^3/uL (4.4-10.8)
[2023-03-07 16:32] LABS: INR 1.22 (0.9-1.15); Partial Thromboplastin Time 29.3 SEC (24.5-34.5)
[2023-03-07 16:35] LABS: BUN/Creatinine Ratio 14.6 (10.0-20.0); Calcium 8.2 mg/dL (8.5-10.1)
== END | disposition home or self-care (01) ==
LOC: LAB 15:59
PROVIDERS: ATTEND Internal Medicine Gastroenterology
DX: R18.8 Other ascites (principal)
CPT/HCPCS: 36415; 80048; 85025; 85610; 85730

== ENCOUNTER → 2023-04-18 | Outpatient (CLI) | payer MEDICAID | END | disposition home or self-care (01) | LOC: US 10:26 | PROVIDERS: ATTEND Internal Medicine Gastroenterology | DX: J90 Pleural effusion, not elsewhere classified (principal); R18.8 Other ascites | CPT/HCPCS: 76604; 76705 ==

== ENCOUNTER → 2023-06-14 | Outpatient (CLI) | payer MEDICAID ==
[2023-06-14 16:15] LABS: Basophils # (auto) 0 10 ^3/uL (0-0.2); Basophils % (auto) 0.4 % (0.0-2.0); Eosinophils # (auto) 0.6 10 ^3/uL (0-0.8); Eosinophils % (auto) 8.2 % (0.0-7.0); Hematocrit 39.9 % (41.0-53.0); Hemoglobin 13.7 g/dL (13.5-17.5); Lymphocytes # (auto) 1.3 10 ^3/uL (0.4-5.4); Lymphocytes % (auto) 19.5 % (10.0-50.0); Mean Corpuscular Hemoglobin 31.8 pg (28.0-32.0); Mean Corpuscular Hgb Conc. 34.3 g/dL (32.0-36.0); Mean Corpuscular Volume 92.6 fL (80.0-100.0); Monocytes # (auto) 0.8 10 ^3/uL (0-1.3); Monocytes % (auto) 11.5 % (0.0-12.0); Neutrophils # (auto) 4.2 10 ^3/uL (1.6-8.6); Neutrophils % (auto) 60.4 % (37.0-80.0); Nucleated Red Blood Cells % 0.1 %; Red Blood Cells 4.31 10^6/uL (4.5-5.90); White Blood Cell 6.9 10^3/uL (4.4-10.8)
[2023-06-14 16:25] LABS: Chloride 109 mmol/L (98-107); Potassium 4.2 mmol/L (3.5-5.1); Sodium 139 mmol/L (136-145)
[2023-06-14 16:26] LABS: Anion Gap 8 (5-15); Calcium 8.6 mg/dL (8.5-10.1); Carbon Dioxide 22 mmol/L (20-30)
[2023-06-14 16:29] LABS: INR 1.22 (0.9-1.15); Prothrombin Time 12.6 sec (9.3-11.8)
[2023-06-14 16:31] LABS: BUN/Creatinine Ratio 10.7 (10.0-20.0); Blood Urea Nitrogen 11 mg/dL (9-23); Glucose 115 mg/dL (74-106)
== END | disposition home or self-care (01) ==
LOC: LAB 15:59
PROVIDERS: ATTEND Internal Medicine Gastroenterology
DX: R10.0 Acute abdomen (principal)
CPT/HCPCS: 36415; 80048; 85025; 85610; 85730

== ENCOUNTER → 2023-06-20 | Outpatient (CLI) | payer MEDICAID | END | disposition home or self-care (01) | LOC: US 13:09 | PROVIDERS: ATTEND Internal Medicine Gastroenterology | DX: R18.8 Other ascites (principal); K74.69 Other cirrhosis of liver; J91.8 Pleural effusion in other conditions classified elsewhere | CPT/HCPCS: 76705 ==

== ENCOUNTER → 2023-09-16 | Outpatient (CLI) | payer MEDICAID ==
[2023-09-16 15:06] LABS: Basophils # (auto) 0.1 10 ^3/uL (0-0.2); Basophils % (auto) 1.8 % (0.0-2.0); Eosinophils # (auto) 0.5 10 ^3/uL (0-0.8); Eosinophils % (auto) 9.2 % (0.0-7.0); Hemoglobin 13.2 g/dL (13.5-17.5); Lymphocytes % (auto) 18.1 % (10.0-50.0); Mean Corpuscular Hemoglobin 31.2 pg (28.0-32.0); Mean Corpuscular Hgb Conc. 33.9 g/dL (32.0-36.0); Monocytes # (auto) 0.7 10 ^3/uL (0-1.3); Monocytes % (auto) 12.4 % (0.0-12.0); Neutrophils # (auto) 3.3 10 ^3/uL (1.6-8.6); Neutrophils % (auto) 58.5 % (37.0-80.0); Red Blood Cells 4.24 10^6/uL (4.5-5.90); Red Cell Distribution Width 14.8 % (11.8-14.3); White Blood Cell 5.6 10^3/uL (4.4-10.8)
[2023-09-16 15:27] LABS: INR 1.18 (0.9-1.15); Partial Thromboplastin Time 28.7 SEC (24.5-34.5); Prothrombin Time 12.3 sec (9.3-11.8)
[2023-09-16 15:28] LABS: Chloride 111 mmol/L (98-107); Potassium 3.9 mmol/L (3.5-5.1); Sodium 141 mmol/L (136-145)
[2023-09-16 15:29] LABS: Anion Gap 7 (5-15); Carbon Dioxide 23 mmol/L (20-30)
[2023-09-16 15:30] LABS: Calcium 8.7 mg/dL (8.5-10.1)
[2023-09-16 15:34] LABS: Glucose 83 mg/dL (74-106)
[2023-09-16 15:35] LABS: BUN/Creatinine Ratio 9.9 (10.0-20.0); Blood Urea Nitrogen 10 mg/dL (9-23)
[2023-09-16 15:44] LABS: Platelet Estimate Decreased
== END | disposition home or self-care (01) ==
LOC: LAB 14:47
PROVIDERS: ATTEND Internal Medicine Gastroenterology
DX: R18.8 Other ascites (principal)
CPT/HCPCS: 36415; 80048; 85025; 85610; 85730

== ENCOUNTER → 2023-10-20 | Outpatient (CLI) | payer MEDICAID ==
[2023-10-20 15:22] LABS: Basophils # (auto) 0 10 ^3/uL (0-0.2); Basophils % (auto) 0.5 % (0.0-2.0); Eosinophils # (auto) 0.3 10 ^3/uL (0-0.8); Eosinophils % (auto) 6.3 % (0.0-7.0); Hemoglobin 13.3 g/dL (13.5-17.5); Lymphocytes % (auto) 20.5 % (10.0-50.0); Mean Corpuscular Hemoglobin 30.9 pg (28.0-32.0); Mean Corpuscular Hgb Conc. 33.4 g/dL (32.0-36.0); Mean Corpuscular Volume 92.5 fL (80.0-100.0); Monocytes # (auto) 0.4 10 ^3/uL (0-1.3); Monocytes % (auto) 7.7 % (0.0-12.0); Neutrophils # (auto) 3.2 10 ^3/uL (1.6-8.6); Red Blood Cells 4.32 10^6/uL (4.5-5.90); Red Cell Distribution Width 15.6 % (11.8-14.3); White Blood Cell 4.9 10^3/uL (4.4-10.8)
[2023-10-20 15:40] LABS: Chloride 112 mmol/L (98-107); Potassium 3.9 mmol/L (3.5-5.1); Sodium 140 mmol/L (136-145)
[2023-10-20 15:41] LABS: Anion Gap 5 (5-15); Calcium 8.4 mg/dL (8.5-10.1); Carbon Dioxide 23 mmol/L (20-30); INR 1.19 (0.9-1.15); Partial Thromboplastin Time 28.9 SEC (24.5-34.5); Prothrombin Time 12.4 sec (9.3-11.8)
[2023-10-20 15:46] LABS: BUN/Creatinine Ratio 8.2 (10.0-20.0); Blood Urea Nitrogen 9 mg/dL (9-23); Glucose 178 mg/dL (74-106)
[2023-10-20 15:56] LABS: Platelet Estimate Decreased
== END | disposition home or self-care (01) ==
LOC: LAB 14:55
PROVIDERS: ATTEND Internal Medicine Gastroenterology
DX: R18.8 Other ascites (principal)
CPT/HCPCS: 36415; 80048; 85025; 85610; 85730

== ENCOUNTER → 2024-01-24 | Outpatient (CLI) | payer MEDICAID ==
[2024-01-24 16:32] LABS: Basophils # (auto) 0 10 ^3/uL (0-0.2); Basophils % (auto) 0.5 % (0.0-2.0); Eosinophils # (auto) 0.6 10 ^3/uL (0-0.8); Eosinophils % (auto) 7.5 % (0.0-7.0); Hematocrit 36.8 % (41.0-53.0); Hemoglobin 12.8 g/dL (13.5-17.5); Lymphocytes # (auto) 1.3 10 ^3/uL (0.4-5.4); Lymphocytes % (auto) 17.1 % (10.0-50.0); Mean Corpuscular Hemoglobin 31.4 pg (28.0-32.0); Mean Corpuscular Hgb Conc. 34.7 g/dL (32.0-36.0); Mean Corpuscular Volume 90.4 fL (80.0-100.0); Monocytes # (auto) 0.9 10 ^3/uL (0-1.3); Monocytes % (auto) 12.5 % (0.0-12.0); Neutrophils # (auto) 4.6 10 ^3/uL (1.6-8.6); Neutrophils % (auto) 62.4 % (37.0-80.0); Red Blood Cells 4.07 10^6/uL (4.5-5.90); Red Cell Distribution Width 15.3 % (11.8-14.3); White Blood Cell 7.4 10^3/uL (4.4-10.8)
[2024-01-24 17:07] LABS: INR 1.13 (0.9-1.15); Prothrombin Time 11.9 sec (9.3-11.8)
[2024-01-24 17:27] LABS: Alanine Aminotransferase 29 U/L (7-40); Albumin 3.7 g/dL (3.2-4.8); Alkaline Phosphatase 109 U/L (46-116); Anion Gap 7 (5-15); Aspartate Aminotransferase 32 U/L (13-40); BUN/Creatinine Ratio 10.6 (10.0-20.0); Bilirubin, Total 1.3 mg/dL (0.2-1.0); Blood Urea Nitrogen 10 mg/dL (9-23); Calcium 8.7 mg/dL (8.5-10.1); Carbon Dioxide 21 mmol/L (20-30); Chloride 112 mmol/L (98-107); Glucose 71 mg/dL (74-106); Potassium 4.2 mmol/L (3.5-5.1); Sodium 140 mmol/L (136-145); Total Protein 6.4 g/dL (5.7-8.2)
== END | disposition home or self-care (01) ==
LOC: LAB 16:17
PROVIDERS: ATTEND Internal Medicine Gastroenterology
DX: K74.69 Other cirrhosis of liver (principal); D61.818 Other pancytopenia; B18.2 Chronic viral hepatitis C
CPT/HCPCS: 36415; 80053; 82105; 82140; 83036; 85025; 85610

== ENCOUNTER → 2024-02-08 | Outpatient (CLI) | payer MEDICAID | END | disposition home or self-care (01) | LOC: LAB 12:07 | PROVIDERS: ATTEND Internal Medicine Gastroenterology | DX: K74.69 Other cirrhosis of liver (principal); B18.2 Chronic viral hepatitis C; D61.818 Other pancytopenia | CPT/HCPCS: 36415; 82951 ==

== ENCOUNTER 2024-02-28 14:26 | Emergency (ER) | payer MEDICAID ==
[~2024-02-28] VITALS: Ht 182.9 cm; Wt 99.0 kg
[2024-02-28] MEDS ORDERED: LIDO5DIS21 TOP (17:42)
[2024-02-28 18:01] VITALS: BP 122/74; PULSE 62; RESP 19; TEMP 97.4; O2SAT 96
== END 2024-02-28 18:03 | disposition home or self-care (01) ==
LOC: ER 14:26
DX: R07.81 Pleurodynia (principal); R05.9 Cough, unspecified; I10 Essential (primary) hypertension; Z87.891 Personal history of nicotine dependence; Z79.899 Other long term (current) drug therapy; W01.0XXA Fall on same level from slipping, tripping and stumbling without subsequent striking against object, initial encounter; Y93.89 Activity, other specified; Y92.096 Garden or yard of other non-institutional residence as the place of occurrence of the external cause; Y99.8 Other external cause status
CPT/HCPCS: 71101

== ENCOUNTER → 2024-06-12 | Outpatient (CLI) | payer MEDICAID ==
[~2024-06-12] MED LIST changes: -FUR20T PO; +FURO20TA4 PO; -LEV50T PO; +LEVO-848 PO; +LIDO5DIS21 TOP
[2024-06-12 16:00] LABS: Basophils # (auto) 0 10 ^3/uL (0-0.2); Basophils % (auto) 0.8 % (0.0-2.0); Eosinophils # (auto) 0.3 10 ^3/uL (0-0.8); Eosinophils % (auto) 6.6 % (0.0-7.0); Hematocrit 38.4 % (41.0-53.0); Hemoglobin 13.1 g/dL (13.5-17.5); Lymphocytes # (auto) 0.9 10 ^3/uL (0.4-5.4); Lymphocytes % (auto) 17.6 % (10.0-50.0); Mean Corpuscular Hemoglobin 30.2 pg (28.0-32.0); Mean Corpuscular Hgb Conc. 34.1 g/dL (32.0-36.0); Mean Corpuscular Volume 88.6 fL (80.0-100.0); Monocytes # (auto) 0.6 10 ^3/uL (0-1.3); Monocytes % (auto) 10.7 % (0.0-12.0); Neutrophils # (auto) 3.3 10 ^3/uL (1.6-8.6); Neutrophils % (auto) 64.3 % (37.0-80.0); Nucleated Red Blood Cells % 0.2 %; Red Blood Cells 4.33 10^6/uL (4.5-5.90); Red Cell Distribution Width 15.8 % (11.8-14.3); White Blood Cell 5.1 10^3/uL (4.4-10.8)
[2024-06-12 16:02] LABS: Platelet Count (auto) 57 10^3/uL (140-450)
[2024-06-12 16:18] LABS: INR 1.24 (0.9-1.15); Partial Thromboplastin Time 27.6 SEC (24.5-34.5); Prothrombin Time 12.9 sec (9.3-11.8)
[2024-06-12 16:39] LABS: Chloride 109 mmol/L (98-107); Potassium 4.1 mmol/L (3.5-5.1); Sodium 139 mmol/L (136-145)
[2024-06-12 16:40] LABS: Anion Gap 6 (5-15); Calcium 9.3 mg/dL (8.7-10.4); Carbon Dioxide 24 mmol/L (20-31)
[2024-06-12 16:45] LABS: BUN/Creatinine Ratio 9.7 (10.0-20.0); Blood Urea Nitrogen 10 mg/dL (9-23); Glucose 93 mg/dL (74-106)
== END | disposition home or self-care (01) ==
LOC: LAB 15:41
PROVIDERS: ATTEND Internal Medicine Gastroenterology
DX: R18.8 Other ascites (principal)
CPT/HCPCS: 36415; 80048; 85025; 85610; 85730

== ENCOUNTER → 2024-06-25 | Outpatient (CLI) | payer MEDICAID ==
[2024-06-25 16:19] LABS: Basophils # (auto) 0 10 ^3/uL (0-0.2); Basophils % (auto) 0.4 % (0.0-2.0); Eosinophils # (auto) 0.3 10 ^3/uL (0-0.8); Eosinophils % (auto) 7.4 % (0.0-7.0); Hematocrit 39.5 % (41.0-53.0); Hemoglobin 13.6 g/dL (13.5-17.5); Lymphocytes # (auto) 0.9 10 ^3/uL (0.4-5.4); Lymphocytes % (auto) 18.8 % (10.0-50.0); Mean Corpuscular Hemoglobin 30.6 pg (28.0-32.0); Mean Corpuscular Hgb Conc. 34.4 g/dL (32.0-36.0); Monocytes # (auto) 0.4 10 ^3/uL (0-1.3); Monocytes % (auto) 8.7 % (0.0-12.0); Neutrophils % (auto) 64.7 % (37.0-80.0); Nucleated Red Blood Cells % 0.1 %; Red Blood Cells 4.44 10^6/uL (4.5-5.90); Red Cell Distribution Width 16.8 % (11.8-14.3); White Blood Cell 4.7 10^3/uL (4.4-10.8)
[2024-06-25 16:20] LABS: Platelet Count (auto) 53 10^3/uL (140-450)
[2024-06-25 16:41] LABS: INR 1.18 (0.9-1.15); Partial Thromboplastin Time 27.9 SEC (24.5-34.5); Prothrombin Time 12.4 sec (9.3-11.8)
[2024-06-25 16:54] LABS: Chloride 109 mmol/L (98-107); Potassium 4.2 mmol/L (3.5-5.1); Sodium 141 mmol/L (136-145)
[2024-06-25 16:55] LABS: Anion Gap 7 (5-15); Carbon Dioxide 25 mmol/L (20-31)
[2024-06-25 17:00] LABS: BUN/Creatinine Ratio 7.8 (10.0-20.0); Blood Urea Nitrogen 8 mg/dL (9-23); Glucose 95 mg/dL (74-106)
== END | disposition home or self-care (01) ==
LOC: LAB 15:24
PROVIDERS: ATTEND Internal Medicine Gastroenterology
DX: R18.8 Other ascites (principal)
CPT/HCPCS: 36415; 80048; 85025; 85610; 85730

== ENCOUNTER → 2024-08-29 | Outpatient (CLI) | payer MEDICAID ==
[2024-08-29 10:59] LABS: Basophils # (auto) 0.1 10 ^3/uL (0-0.2); Basophils % (auto) 0.7 % (0.0-2.0); Eosinophils # (auto) 0.3 10 ^3/uL (0-0.8); Hematocrit 41.4 % (41.0-53.0); Lymphocytes # (auto) 1.2 10 ^3/uL (0.4-5.4); Mean Corpuscular Hemoglobin 29.9 pg (28.0-32.0); Mean Corpuscular Hgb Conc. 33.8 g/dL (32.0-36.0); Mean Corpuscular Volume 88.4 fL (80.0-100.0); Monocytes # (auto) 0.9 10 ^3/uL (0-1.3); Monocytes % (auto) 11.5 % (0.0-12.0); Neutrophils % (auto) 67.8 % (37.0-80.0); Nucleated Red Blood Cells % 0.1 %; Platelet Count (auto) 88 10^3/uL (140-450); Red Blood Cells 4.68 10^6/uL (4.5-5.90); Red Cell Distribution Width 16.1 % (11.8-14.3); White Blood Cell 7.4 10^3/uL (4.4-10.8)
[2024-08-29 11:04] LABS: INR 1.13 (0.9-1.15); Partial Thromboplastin Time 27.3 SEC (24.5-34.5); Prothrombin Time 11.9 sec (9.3-11.8)
[2024-08-29 11:24] LABS: Alanine Aminotransferase 25 U/L (7-40); Albumin 3.9 g/dL (3.2-4.8); Anion Gap 10 (5-15); Aspartate Aminotransferase 36 U/L (13-40); BUN/Creatinine Ratio 11.9 (10.0-20.0); Blood Urea Nitrogen 13 mg/dL (9-23); Calcium 9.2 mg/dL (8.7-10.4); Carbon Dioxide 20 mmol/L (20-31); Potassium 3.9 mmol/L (3.5-5.1); Sodium 139 mmol/L (136-145); Total Protein 6.8 g/dL (5.7-8.2)
[2024-08-29 11:27] LABS: Alkaline Phosphatase 120 U/L (46-116); Bilirubin, Total 1.5 mg/dL (0.2-1.0); Chloride 109 mmol/L (98-107); Glucose 172 mg/dL (74-106)
== END | disposition home or self-care (01) ==
LOC: LAB 10:09
PROVIDERS: ATTEND Internal Medicine Gastroenterology
DX: K74.60 Unspecified cirrhosis of liver (principal)
CPT/HCPCS: 36415; 80053; 85025; 85610; 85730

== ENCOUNTER → 2024-09-18 | Outpatient (CLI) | payer MEDICAID ==
[2024-09-18 14:47] LABS: Basophils # (auto) 0.1 10 ^3/uL (0-0.2); Eosinophils # (auto) 0.4 10 ^3/uL (0-0.8); Eosinophils % (auto) 5.4 % (0.0-7.0); Hematocrit 40.2 % (41.0-53.0); Hemoglobin 13.9 g/dL (13.5-17.5); Lymphocytes # (auto) 1.5 10 ^3/uL (0.4-5.4); Lymphocytes % (auto) 21.9 % (10.0-50.0); Mean Corpuscular Hemoglobin 30.5 pg (28.0-32.0); Mean Corpuscular Hgb Conc. 34.6 g/dL (32.0-36.0); Mean Corpuscular Volume 88.1 fL (80.0-100.0); Monocytes # (auto) 0.7 10 ^3/uL (0-1.3); Neutrophils # (auto) 4.3 10 ^3/uL (1.6-8.6); Neutrophils % (auto) 61.7 % (37.0-80.0); Nucleated Red Blood Cells % 0.1 %; Platelet Count (auto) 66 10^3/uL (140-450); Red Blood Cells 4.57 10^6/uL (4.5-5.90); Red Cell Distribution Width 16.1 % (11.8-14.3); White Blood Cell 6.9 10^3/uL (4.4-10.8)
[2024-09-18 15:09] LABS: Alanine Aminotransferase 24 U/L (7-40); Alkaline Phosphatase 115 U/L (46-116); Anion Gap 9 (5-15); Aspartate Aminotransferase 30 U/L (13-40); BUN/Creatinine Ratio 12.3 (10.0-20.0); Blood Urea Nitrogen 13 mg/dL (9-23); Calcium 9.2 mg/dL (8.7-10.4); Carbon Dioxide 21 mmol/L (20-31); Glucose 100 mg/dL (74-106); Potassium 4.2 mmol/L (3.5-5.1); Sodium 139 mmol/L (136-145)
[2024-09-18 15:10] LABS: Albumin 4.1 g/dL (3.2-4.8); Total Protein 6.7 g/dL (5.7-8.2)
[2024-09-18 15:14] LABS: Bilirubin, Total 1.9 mg/dL (0.2-1.0); Chloride 109 mmol/L (98-107)
[2024-09-18 15:16] LABS: INR 1.13 (0.9-1.15); Prothrombin Time 11.8 sec (9.3-11.8)
== END | disposition home or self-care (01) ==
LOC: LAB 14:29
PROVIDERS: ATTEND Internal Medicine Gastroenterology
DX: K76.82 Hepatic encephalopathy (principal); R18.8 Other ascites
CPT/HCPCS: 36415; 80053; 85025; 85610; 85730

== ENCOUNTER → 2024-12-31 | Outpatient (CLI) | payer MEDICAID ==
[~2024-12-31] MED LIST changes: +ALBUTEROL SULF 2.5 MG/0.5ML(0.5%) NEB SOLN ONE
== END | disposition home or self-care (01) ==
LOC: RT 14:40
PROVIDERS: ATTEND Internal Medicine Pulmonary Disease
DX: J43.9 Emphysema, unspecified (principal); R05.9 Cough, unspecified; Z87.891 Personal history of nicotine dependence; Z79.52 Long term (current) use of systemic steroids
CPT/HCPCS: 94060; 94618; 94727; 94729

== ENCOUNTER 2025-01-28 15:19 | Outpatient (CLI) | payer MEDICAID ==
[~2025-01-28 15:19] MED LIST changes: -ALBUTEROL SULF 2.5 MG/0.5ML(0.5%) NEB SOLN ONE
[2025-01-28 15:46] LABS: Basophils # (auto) 0 10 ^3/uL (0-0.2); Eosinophils # (auto) 0.2 10 ^3/uL (0-0.8); Hemoglobin 12.4 g/dL (13.5-17.5); Lymphocytes # (auto) 0.9 10 ^3/uL (0.4-5.4); Nucleated Red Blood Cells % 0.1 %; Red Cell Distribution Width 16.6 % (11.8-14.3); White Blood Cell 4.6 10^3/uL (4.4-10.8)
[2025-01-28 15:48] LABS: Eosinophils % (auto) 5.4 % (0.0-7.0); Hematocrit 37.6 % (41.0-53.0); Lymphocytes % (auto) 19.1 % (10.0-50.0); Mean Corpuscular Hemoglobin 27.2 pg (28.0-32.0); Mean Corpuscular Hgb Conc. 32.9 g/dL (32.0-36.0); Mean Corpuscular Volume 82.6 fL (80.0-100.0); Monocytes # (auto) 0.6 10 ^3/uL (0-1.3); Monocytes % (auto) 12.5 % (0.0-12.0); Neutrophils # (auto) 2.8 10 ^3/uL (1.6-8.6); Red Blood Cells 4.55 10^6/uL (4.5-5.90)
[2025-01-28 16:09] LABS: Platelet Count (auto) 59 10^3/uL (140-450)
[2025-01-28 16:24] LABS: Alanine Aminotransferase 29 U/L (7-40); Alkaline Phosphatase 100 U/L (46-116); Anion Gap 10 (5-15); Aspartate Aminotransferase 35 U/L (13-40); BUN/Creatinine Ratio 8.6 (10.0-20.0); Blood Urea Nitrogen 11 mg/dL (9-23); Calcium 9.4 mg/dL (8.7-10.4); Carbon Dioxide 22 mmol/L (20-31); Glucose 95 mg/dL (74-106); Potassium 4.3 mmol/L (3.5-5.1); Total Protein 6.6 g/dL (5.7-8.2)
[2025-01-28 16:33] LABS: Bilirubin, Total 1.5 mg/dL (0.2-1.0); Chloride 113 mmol/L (98-107); Sodium 145 mmol/L (136-145)
[2025-01-28 16:39] LABS: INR 1.17 (0.9-1.15); Partial Thromboplastin Time 27.1 SEC (24.5-34.5); Prothrombin Time 12.2 sec (9.3-11.8)
== END 2025-01-28 17:00 | disposition home or self-care (01) ==
LOC: LAB 15:19
PROVIDERS: ATTEND Internal Medicine Gastroenterology
DX: K74.60 Unspecified cirrhosis of liver (principal)
CPT/HCPCS: 36415; 80053; 82105; 85025; 85610; 85730

== ENCOUNTER 2025-06-27 14:19 | Outpatient (CLI) | payer MEDICARE, MEDICAID ==
[2025-06-27 14:39] LABS: Potassium 4.0 mmol/L (3.5-5.1); Sodium 144 mmol/L (136-145)
[2025-06-27 14:40] LABS: Anion Gap 10 (5-15); Carbon Dioxide 25 mmol/L (20-31)
[2025-06-27 14:41] LABS: Calcium 8.8 mg/dL (8.7-10.4)
[2025-06-27 14:44] LABS: Chloride 109 mmol/L (98-107)
[2025-06-27 14:45] LABS: BUN/Creatinine Ratio 9.3 (10.0-20.0); Blood Urea Nitrogen 10 mg/dL (9-23)
[2025-06-27 14:46] LABS: Glucose 66 mg/dL (74-106)
== END 2025-06-27 17:00 | disposition home or self-care (01) ==
LOC: LAB 14:19
PROVIDERS: ATTEND Internal Medicine Pulmonary Disease
DX: R06.09 Other forms of dyspnea (principal)
CPT/HCPCS: 36415; 80048